=== PATIENT | female | born 1965 | race Caucasian/White ===

== ENCOUNTER 2020-12-03 14:25 | Outpatient (REF) | payer MEDICAID, SELFPAY ==
[2020-12-06 06:06] LABS: HPV mRNA E6/E7 rflx Not Detected (Not Detected)
== END 2020-12-03 14:26 | disposition home or self-care (01) ==
LOC: HO.LAB 14:25
PROVIDERS: Visit Provider Advanced Practice Midwife
DX: Z01.419 Encounter for gynecological examination (general) (routine) without abnormal findings (principal); Z11.51 Encounter for screening for human papillomavirus (HPV); Z80.3 Family history of malignant neoplasm of breast; Z78.0 Asymptomatic menopausal state; Z87.42 Personal history of other diseases of the female genital tract
CPT/HCPCS: 87624; 88142

== ENCOUNTER 2021-01-07 13:31 | Outpatient (REF) | payer MEDICAID, SELFPAY | END 2021-01-07 13:32 | disposition home or self-care (01) | LOC: HO.LAB 13:31 | PROVIDERS: PCP Internal Medicine; Visit Provider Obstetrics & Gynecology | DX: R87.610 Atypical squamous cells of undetermined significance on cytologic smear of cervix (ASC-US) (principal) | CPT/HCPCS: 57454; 88305 ==

== ENCOUNTER 2021-01-09 14:25 | Outpatient (REF) | payer MEDICAID, SELFPAY ==
--- NOTE | ~2021-01-09 | MM_ITS ---
EXAMINATION: MM SCREENING DIGITAL BREAST TOMOSYNTHESIS, BILATERAL CLINICAL INFORMATION: Screening. Asymptomatic. The lifetime risk of breast cancer based on the Tyrer-Cuzick Model is 7%. COMPARISON: Mammography: 01/05/2019, 11/17/2016, 05/12/2016 TECHNIQUE: Digital breast tomosynthesis is performed in both the craniocaudal and mediolateral oblique views along with computer-aided detection (CAD). Synthesized 2D images are generated from the tomosynthesis. FINDINGS: The breasts are heterogeneously dense, which may obscure small masses (ACR BI-RADS breast composition Category c). Breast tissue composition borders on average fibroglandular. No developing density. No significant changes. There are no significant masses, abnormal calcifications, or other abnormalities. MM/MM tomosynthesis screening BI IMPRESSION: No mammographic evidence of malignancy. ASSESSMENT: BI-RADS 1: Negative RECOMMENDATION: Routine annual mammography screening. This patient's information was entered into a reminder system with a target due date for their next mammogram.
== END 2021-01-09 14:26 | disposition home or self-care (01) ==
LOC: HO.MAMMO 14:25
PROVIDERS: Visit Provider Family Medicine
DX: Z12.31 Encounter for screening mammogram for malignant neoplasm of breast (principal)
CPT/HCPCS: 77063; 77067

== ENCOUNTER → 2021-01-22 13:32 | Outpatient (BNVA) | payer MEDICAID, SELFPAY | PROVIDERS: Visit Provider Obstetrics & Gynecology ==

== ENCOUNTER → 2021-01-23 11:22 | Outpatient (BNVA) | payer MEDICAID, SELFPAY | PROVIDERS: PCP Internal Medicine; Visit Provider Obstetrics & Gynecology | DX: N87.0 Mild cervical dysplasia (principal) | CPT/HCPCS: 99212 ==

== ENCOUNTER 2021-01-24 09:04 | Day surgery (SDC) | payer MEDICAID, SELFPAY ==
--- NOTE | 2021-01-23 12:40 | HO.ANESPROP2 ---
Documented by User: Chanel Rodriguez NP 01/23/21 13:42 HPI - Anesthesia Eval Consult details Narrative: 55yo F for Cone LEEP Stable at routine cardiac visit 11/2020 VSD followed by [facility] with yearly echo's PMF Active Problems Active Problems: All Active Problems (Updated 01/22/21 @ 13:36 by Lalo Gonzalez MD) BHANU I (cervical intraepithelial neoplasia I) (Acute) ASCUS of cervix with negative high risk HPV (Acute) Postmenopausal (Acute) Family history of breast cancer in first degree relative (Acute) Hx of abnormal cervical Pap smear (Acute) Well woman exam with routine gynecological exam (Acute) Past Medical History Medical History Depression Heart murmur HTN (hypertension) IBS (irritable bowel syndrome) VSD (ventricular septal defect) Family History Family History Mother Breast cancer Surgical History Surgical History (Updated 01/24/21 @ 10:50 by Dana Hope MD) H/O heart surgery History of 2 sections Hx of appendectomy Hx of cholecystectomy Hx of tubal ligation Social History Social History Alcohol intake: never Patient Tobacco Use Status: Current someday Tobacco user Tobacco use type: Cigarette Cigarettes Per Day: 4 Smoked in Last 30 Days: Yes Use of substances other than those prescribed or required for medical reasons: No Are you DNR?: No Advance Directives: No Advance Directives Information Provided: Yes Recently lost weight without trying: Yes How much weight loss: 2-13 pounds Nutrition Risks: No Nutritional Risk Patient : No Gender identity: Female Meds Allergies Allergy/AdvReac Type Severity Reaction Status Date / Time iodine Allergy Unknown Unknown Verified 12/03/20 14:38 Seafood Allergy Mild ITCH,THROAT Uncoded 12/14/19 17:00 CLOSES shellfish Allergy Unknown Itching Uncoded 12/03/20 14:38 Active Medications: Current Medications Ampicillin Sodium 2 gm/ Sodium (Chloride) 100 mls @ 100 mls/hr IV ONCE ONE Stop: 01/24/21 13:56 Home Medications Medication Instructions Recorded Confirmed Last Taken Type metformin 500 mg tablet 500 mg PO DAILY 12/03/20 12/03/20 Unknown History atorvastatin 40 mg tablet 1 tab PO BEDTIME 01/24/21 01/24/21 Unknown History cetirizine 10 mg tablet 1 tab PO QAM 01/24/21 01/24/21 Unknown History diphenhydramine HCl 25 mg tablet 1 tab PO Q8H PRN 01/24/21 01/24/21 Unknown History epinephrine 0.3 mg/0.3 mL IM DIRECTED 01/24/21 Unknown History injection, auto-injector fluticasone propionate 50 2 spray INTRANASAL DAILY 01/24/21 01/24/21 Unknown History mcg/actuation nasal spray,suspension ibuprofen 800 mg tablet 1 tab PO TID 01/24/21 01/24/21 Unknown History insulin glargine 100 unit/mL (3 10 unit SUBCUT DAILY 01/24/21 01/24/21 Unknown History mL) subcutaneous pen (Lantus Solostar U-100 Insulin) lisinopril 2.5 mg tablet 1 tab PO QAM 01/24/21 01/24/21 01/24/21 History lorazepam 1 mg tablet 1 tab PO DAILY PRN 01/24/21 01/24/21 Unknown History metformin 500 mg tablet,extended 2 tab PO QPM 01/24/21 01/24/21 Unknown History release 24 hr metoprolol succinate 50 mg 1 tab PO QAM 01/24/21 01/24/21 01/24/21 History tablet,extended release 24 hr omeprazole 20 mg capsule,delayed 1 cap PO QAM 01/24/21 01/24/21 01/24/21 History release zolpidem 10 mg tablet 1 tab PO BEDTIME PRN 01/24/21 01/24/21 Unknown History Exam Exam Date and Time: January 23, 2021 1240 Narrative Narrative: ECHO per Cardiac note: preserved EF with mild to moderate pulmonary HTN and VSD shunt from left to right with grossly of 2.91 M/S and peak gradient of 33.8, no significant change compared to previous Assessment and Plan Assessment Anesthesia Assessment: Chart Reviewed Documented by User: Dana Hope MD 01/24/21 11:12 PMFSH Active Problems Active Problems: All Active Problems (Updated 01/22/21 @ 13:36 by Lalo Gonzalez MD) BHANU I (cervical intraepithelial neoplasia I) (Acute) ASCUS of cervix with negative high risk HPV (Acute) Postmenopausal (Acute) Family history of breast cancer in first degree relative (Acute) Hx of abnormal cervical Pap smear (Acute) Well woman exam with routine gynecological exam (Acute) VSD with L to R shunt. Patient apparently has a VSD which was fixed at [facility] in ?2005. However patient still has distinct pansystolic murmur. On further questioning patient states she was told that stitches burst . Was offered further surgery but she declined. Sees cardiology every year for follow-up. Reportedly stable at last visit of 10/2020 and next visit scheduled for 1 year Denies h/o CHF ? Pulmonary hypertension Past Medical History Medical History Depression Heart murmur HTN (hypertension) IBS (irritable bowel syndrome) VSD (ventricular septal defect) Family History Family History Mother Breast cancer Family history of problems with anesthesia: No Surgical History Surgical History (Updated 01/24/21 @ 10:50 by Dana Hope MD) H/O heart surgery History of 2 sections Hx of appendectomy Hx of cholecystectomy Hx of tubal ligation History of Problems with Anesthesia: No Social History Social History Alcohol intake: never Patient Tobacco Use Status: Current someday Tobacco user Tobacco use type: Cigarette Cigarettes Per Day: 4 Smoked in Last 30 Days: Yes Use of substances other than those prescribed or required for medical reasons: No Are you DNR?: No Advance Directives: No Advance Directives Information Provided: Yes Recently lost weight without trying: Yes How much weight loss: 2-13 pounds Nutrition Risks: No Nutritional Risk Patient : No Gender identity: Female Meds Allergies Allergy/AdvReac Type Severity Reaction Status Date / Time iodine Allergy Unknown Unknown Verified 12/03/20 14:38 Seafood Allergy Mild ITCH,THROAT Uncoded 12/14/19 17:00 CLOSES shellfish Allergy Unknown Itching Uncoded 12/03/20 14:38 Home Medications Medication Instructions Recorded Confirmed Last Taken Type metformin 500 mg tablet 500 mg PO DAILY 12/03/20 12/03/20 Unknown History atorvastatin 40 mg tablet 1 tab PO BEDTIME 01/24/21 01/24/21 Unknown History cetirizine 10 mg tablet 1 tab PO QAM 01/24/21 01/24/21 Unknown History diphenhydramine HCl 25 mg tablet 1 tab PO Q8H PRN 01/24/21 01/24/21 Unknown History epinephrine 0.3 mg/0.3 mL IM DIRECTED 01/24/21 Unknown History injection, auto-injector fluticasone propionate 50 2 spray INTRANASAL DAILY 01/24/21 01/24/21 Unknown History mcg/actuation nasal spray,suspension ibuprofen 800 mg tablet 1 tab PO TID 01/24/21 01/24/21 Unknown History insulin glargine 100 unit/mL (3 10 unit SUBCUT DAILY 01/24/21 01/24/21 Unknown History mL) subcutaneous pen (Lantus Solostar U-100 Insulin) lisinopril 2.5 mg tablet 1 tab PO QAM 01/24/21 01/24/21 01/24/21 History lorazepam 1 mg tablet 1 tab PO DAILY PRN 01/24/21 01/24/21 Unknown History metformin 500 mg tablet,extended 2 tab PO QPM 01/24/21 01/24/21 Unknown History release 24 hr metoprolol succinate 50 mg 1 tab PO QAM 01/24/21 01/24/21 01/24/21 History tablet,extended release 24 hr omeprazole 20 mg capsule,delayed 1 cap PO QAM 01/24/21 01/24/21 01/24/21 History release zolpidem 10 mg tablet 1 tab PO BEDTIME PRN 01/24/21 01/24/21 Unknown History Exam Height,Weight and Vital Signs: Height 5 ft 3 in Weight 78.925 kg Vital Signs Temp Pulse Resp BP Pulse Ox 01/24/21 10:10 97.2 F 88 16 143/82 H 98 Pertinent Lab Results Pertinent Lab Results: Lab Results 01/24/21 01/24/21 Range/Units 09:40 10:20 POC Glucose 166 H (60-115) mg/dL Urine Test NEGATIVE (NEGATIVE) Airway Mallampati Class: II TM Dist: >3cm Neck ROM: Full Heart: RRR+ Pansystolic murmur Lungs: CTAB Assessment and Plan Assessment Anesthesia Assessment: Anesthesia Plan Discussed Final Anesthetic Review Family History of Problems with Anesthesia: No History of Problems with Anesthesia: No NPO: Yes ASA Class: III Final Preanesthetic Review: No Changes in Pt Med Stat, Meds/Allgs Chart Reviewed, Consent Obtained/Reviewed and Anes Risks/Benef Reviewed Patient Risk: Intermediate Procedure Risk: Low Anesthetic Plan Anesthetic Plan: GA and MAC: Disposition: Standard PACU
[2021-01-24 09:50] VITALS: BMI 30.8
[2021-01-24 10:03] LABS: UPreg QC Valid YES; Urine Pregnancy NEGATIVE (NEGATIVE)
[2021-01-24 10:10] VITALS: BP 143/82; PULSE 88; RESP 16; TEMP 36.2; O2SAT 98
--- NOTE | 2021-01-24 10:16 | MHC.SHP ---
Pre-Procedural Eval Section A Date of Service: 01/24/21 The patient is an INPATIENT: No Changes since office visit: No Cold of Flu in the past 2 weeks, No New Medical Problems, No Changes in Medication and No Patient answered all questions The History & Physical has been completed within 30 days and I have reviewed it.: Yes Section B Chief Complaint: mild dysplasia Allergies: Allergies Allergy/AdvReac Type Severity Reaction Status Date / Time iodine Allergy Unknown Unknown Verified 12/03/20 14:38 Seafood Allergy Mild ITCH,THROAT Uncoded 12/14/19 17:00 CLOSES shellfish Allergy Unknown Itching Uncoded 12/03/20 14:38 Plan Diagnosis/Plan: Unchanged I have reviewed the history and physical and performed a pertinent physical examination on my patient. No changes have occurred unless specified.
[2021-01-24] MEDS: Lactated Ringers 1,000 ML 50 ML IVCONT (10:27)
[2021-01-24 10:28] LABS: Glucose, Whole Blood 166 mg/dL (60-115)
--- NOTE | 2021-01-24 11:13 | PM.OP ---
Brief Operative Note Date of Service: 01/24/21 Pre-op diagnosis: Persistent BHANU 1 with positive ECC Post-op diagnosis: same Procedure: LEEP CONE with post CONE ECC Surgeon: Lalo Gonzalez MD Anesthesia: local and other (Paracervical block) Was an Mine Equipment Design Engineer used for this Procedure?: No Estimated blood loss (mL): 0 Pathology: other (Cervical cone, Endocx, Post cone ECC) Condition: stable Disposition: other (Home)
--- NOTE | 2021-01-24 11:14 | W.PM.OPN ---
Operative Note Operative Note Date of Service: 01/24/21 Narrative: Preop diagnosis: Persistent BHANU 1 with + ECC Operation: LEEP Cone with post cone ECC Post op diagnosis: same Anesthesia: paracervical block Complications: none Pathology: Cervical cone with endocervix & post cone ECC QBL: minimal Procedure: The patient was put in the dorsal lithotomy position, was prepped and draped in the usual sterile fashion. A sterile speculum was inserted inside the patient vagina. Using Lugol solution the cervix with Dyed with Lugol solution to identifiy the abnormal demarcating line. 10 cc of Marcaine0.5% with epinephrine were given at 2,4 , 8, and 10 o'clock. Using a medium-size loop wire, the cervical cone was excised followed by endocervix, post cone ECC was done afterwards. Hemostasis was assured using cautery and Monsel solution. All instruments were taken out of the patient's vaginal cavity. the patient tolerated the procedure well and was discharged home with the following instructions: call if temperature is above 100.4, vaginal bleeding, abdominal pain or nausea or vomiting. Follow-up in the office in 2 weeks for postop visit
[2021-01-24 11:22] VITALS: BP 128/64; PULSE 97; RESP 22; TEMP 37.1; O2SAT 98
[2021-01-24 11:28] VITALS: BP 107/53; PULSE 91; RESP 20; O2SAT 98
[2021-01-24 11:33] VITALS: BP 119/61; PULSE 93; RESP 20; O2SAT 98
[2021-01-24 11:38] VITALS: BP 137/68; PULSE 93; RESP 20; O2SAT 98
[2021-01-24 11:53] VITALS: BP 128/63; PULSE 93; RESP 20; O2SAT 94
== END 2021-01-24 12:46 | disposition home or self-care (01) ==
PROVIDERS: PCP Internal Medicine; Visit Provider Obstetrics & Gynecology
PROC: 0UBC7ZZ Excision of Cervix, Via Natural or Artificial Opening (ICD-10-PCS; CPT 57522; principal; 2021-01-24 11:10)
DX: N87.0 Mild cervical dysplasia (principal); Z98.51 Tubal ligation status; I10 Essential (primary) hypertension; F32.9 Major depressive disorder, single episode, unspecified; Q24.9 Congenital malformation of heart, unspecified; K58.9 Irritable bowel syndrome, unspecified; Z91.041 Radiographic dye allergy status; F17.210 Nicotine dependence, cigarettes, uncomplicated
CPT/HCPCS: 57522; 81025; 82947; 88300; 88307; 88341; 88342; 88360; J0290; J1100; J2405; J3010

== ENCOUNTER → 2021-02-06 12:57 | Outpatient (BNVA) | payer MEDICAID, SELFPAY | PROVIDERS: Visit Provider Obstetrics & Gynecology ==

== ENCOUNTER 2021-12-05 11:01 | Outpatient (REF) | payer MEDICAID, SELFPAY ==
--- NOTE | ~2021-12-05 | XR_ITS ---
EXAMINATION: XR LUMBOSACRAL SPINE CLINICAL INFORMATION: Lumbago with right sciatica. COMPARISON: Unresponsive radiographs dated 04/06/2018. TECHNIQUE: AP, bilateral oblique and lateral views of the lumbar spine and lateral view of the lumbosacral junction. FINDINGS: There is bony demineralization. Vertebral body heights are normal. At T12-L1 and L1-L2, there is mild disc space narrowing. At L5-S1, there is a 3 mm anterolisthesis. Remaining disc spaces are well-maintained. No acute fracture or spondylolisthesis is seen. There is multi-level mild thoracolumbar spondylosis. The posterior elements are intact. There is facet arthropathy, most pronounced at L5-S1. No spondylolysis defect is seen on the oblique views. The paravertebral soft tissues are unremarkable. There are abdominal and pelvic surgical clips. XR/XR lumbar spine 4V min IMPRESSION: 1. There is mild degenerative disc disease at T12-L1, L1-L2 and L5-S1. 2. There is multi-level mild thoracolumbar spondylosis. 3. There is facet arthropathy, most pronounced at L5-S1. EXAMINATION: XR SACRUM AND COCCYX CLINICAL INFORMATION: Sacrococcygeal pain. COMPARISON: None TECHNIQUE: 3 frontal and lateral views of the sacrum and coccyx were obtained. FINDINGS: There are no fractures. No bone, joint or soft tissue abnormality is demonstrated. The sacroiliac joints are symmetric and well-maintained, and the pubic symphysis is intact. There are right pelvic phleboliths. IMPRESSION: Unremarkable examination.
--- NOTE | ~2021-12-05 | XR_ITS ---
EXAMINATION: XR LUMBOSACRAL SPINE CLINICAL INFORMATION: Lumbago with right sciatica. COMPARISON: Unresponsive radiographs dated 04/06/2018. TECHNIQUE: AP, bilateral oblique and lateral views of the lumbar spine and lateral view of the lumbosacral junction. FINDINGS: There is bony demineralization. Vertebral body heights are normal. At T12-L1 and L1-L2, there is mild disc space narrowing. At L5-S1, there is a 3 mm anterolisthesis. Remaining disc spaces are well-maintained. No acute fracture or spondylolisthesis is seen. There is multi-level mild thoracolumbar spondylosis. The posterior elements are intact. There is facet arthropathy, most pronounced at L5-S1. No spondylolysis defect is seen on the oblique views. The paravertebral soft tissues are unremarkable. There are abdominal and pelvic surgical clips. XR/XR sacrum coccyx min 2V IMPRESSION: 1. There is mild degenerative disc disease at T12-L1, L1-L2 and L5-S1. 2. There is multi-level mild thoracolumbar spondylosis. 3. There is facet arthropathy, most pronounced at L5-S1. EXAMINATION: XR SACRUM AND COCCYX CLINICAL INFORMATION: Sacrococcygeal pain. COMPARISON: None TECHNIQUE: 3 frontal and lateral views of the sacrum and coccyx were obtained. FINDINGS: There are no fractures. No bone, joint or soft tissue abnormality is demonstrated. The sacroiliac joints are symmetric and well-maintained, and the pubic symphysis is intact. There are right pelvic phleboliths. IMPRESSION: Unremarkable examination.
--- NOTE | ~2021-12-05 | XR_ITS ---
EXAMINATION: XR ELBOW, RIGHT CLINICAL INFORMATION: Pain. COMPARISON: None TECHNIQUE: AP, lateral, and oblique views of the right elbow. FINDINGS: The bones and soft tissues are normal. No fracture or joint effusion. Small enthesophytes arise from the olecranon process and the lateral epicondyle of the distal humerus. Alignment is anatomic. Joint spaces are maintained. XR/XR elbow RT 2V IMPRESSION: Unremarkable right elbow.
== END 2021-12-05 11:02 | disposition home or self-care (01) ==
LOC: HO.XRAY 11:01
PROVIDERS: Visit Provider Internal Medicine
DX: Z13.89 Encounter for screening for other disorder (principal)
CPT/HCPCS: 72110; 72220; 73070

== ENCOUNTER 2022-01-14 13:24 | Outpatient (REF) | payer MEDICAID, SELFPAY ==
--- NOTE | ~2022-01-14 | MM_ITS ---
EXAMINATION: MM SCREENING DIGITAL BREAST TOMOSYNTHESIS, BILATERAL CLINICAL INFORMATION: Screening. Asymptomatic. The lifetime risk of breast cancer based on the Tyrer-Cuzick Model is 14%. COMPARISON: Mammography: January 09, 2021 and studies dating back to June 08, 2013 TECHNIQUE: Digital breast tomosynthesis is performed in both the craniocaudal and mediolateral oblique views along with computer-aided detection (CAD). Synthesized 2D images are generated from the tomosynthesis. FINDINGS: The breasts are heterogeneously dense, which may obscure small masses (ACR BI-RADS breast composition Category c). There are no significant masses, abnormal calcifications, or other abnormalities. MM/MM tomosynthesis screening BI IMPRESSION: No significant changes from prior exam. ASSESSMENT: BI-RADS 1: Negative RECOMMENDATION: Routine annual mammography screening. This patient's information was entered into a reminder system with a target due date for their next mammogram.
== END 2022-01-14 13:25 | disposition home or self-care (01) ==
LOC: HO.MAMMO 13:24
PROVIDERS: PCP Internal Medicine; Visit Provider Internal Medicine
DX: Z12.31 Encounter for screening mammogram for malignant neoplasm of breast (principal)
CPT/HCPCS: 77063; 77067

== ENCOUNTER → 2022-05-15 09:50 | Outpatient (BNVA) | payer MEDICAID, SELFPAY | PROVIDERS: PCP Internal Medicine; Visit Provider Physician Assistant | DX: M77.11 Lateral epicondylitis, right elbow (principal); E11.9 Type 2 diabetes mellitus without complications | CPT/HCPCS: 20551; 99202; J1020 ==

== ENCOUNTER 2022-11-09 14:33 | Outpatient (REF) | payer MEDICAID, SELFPAY ==
[2022-11-12 04:13] LABS: HPV mRNA E6/E7 rflx Not Detected (Not Detected)
== END 2022-11-09 14:34 | disposition home or self-care (01) ==
LOC: HO.LNP 14:33
PROVIDERS: PCP Internal Medicine; Visit Provider Obstetrics & Gynecology
DX: Z01.419 Encounter for gynecological examination (general) (routine) without abnormal findings (principal); Z11.51 Encounter for screening for human papillomavirus (HPV); Z87.42 Personal history of other diseases of the female genital tract
CPT/HCPCS: 87624; 88142

== ENCOUNTER 2022-11-09 14:33 | Outpatient (AMB) | payer MEDICAID, SELFPAY ==
--- NOTE | 2022-11-09 14:44 | A.OFFVIS_ITS ---
Intake Vital Signs 11/09/22 14:57 Height 5 ft 3 in Weight 179 lb BMI 31.7 BP 114/70 Intake Visit Reasons: Annual/do not reschedule Gambreler Helper Required: Yes Gambreler Helper Language: Superintendent Laundry Name: Bobbi Bautista Information Interpreted: non-clinical & clinical Oracle Distribution Consultant: Oracle Distribution Consultant Present (Bobbi) Allergies iodine Allergy (Unknown, Verified 11/09/22 15:03) Unknown Seafood Allergy (Mild, Uncoded 11/09/22 15:03) ITCH,THROAT CLOSES shellfish Allergy (Unknown, Uncoded 11/09/22 15:03) Itching Is last menstrual period known: No Post menopausal: Yes HPI HPI Comments History of Present Illness Details Presenting for annual exam. No complaints. Last Pap/HPV was ascus/HPV negative in 12/17, colpo biopsy showed BHANU 1, status post LEEP Last Mammogram was BI-RADS 1 in 01/17 Last Colonoscopy [facility] Medical History (Updated 11/09/22 @ 15:01 by Lalo Gonzalez MD) BHANU I (cervical intraepithelial neoplasia I) Depression Heart murmur HTN (hypertension) IBS (irritable bowel syndrome) VSD (ventricular septal defect) Surgical History H/O heart surgery History of 2 sections Hx of appendectomy Hx of cholecystectomy Hx of tubal ligation Family History Mother Breast cancer Social History (Updated 05/15/22 @ 10:00 by Kai Rehman) Alcohol intake: never Patient Tobacco Use Status: Current someday Tobacco user Tobacco use type: Cigarette Cigarettes Per Day: 4 Current occupational status: disabled Current occupation: right hand dominant Gender identity: Female Female Reproductive History Menstrual Age of Menarche: 11 control method: permanent sterilization Total pregnancies: 2 Full term: 2 Number of Living Children: 2 Date of last pap smear: 12/14/20 Date of Mammogram: 01/14/22 Review of Systems Const All systems reviewed & are unremarkable except as noted in HPI and below Card Reports as per HPI Resp Reports as per HPI GI Reports as per HPI and Reports no additional complaints Reports as per HPI Physical Exam Const General: cooperative, healthy appearing and comfortable Chest Chest palpation & inspection: normal inspection of the chest and normal palpation of entire chest wall Breast/axilla inspection: normal inspection of the breasts and normal inspection of the axillae Breast/axilla palpation: normal palpation of the breasts, normal palpation of the axillae and no axillary lymphadenopathy Resp Effort & Inspection: normal respiratory effort Auscultation: clear to auscultation bilaterally Percussion: percussion normal Cardio Palpation: normal PMI Rate: regular rate Rhythm: regular rhythm Heart sounds: no murmurs and no rubs Peripheral pulses: Peripheral pulses 2+ throughout GI Inspection: Yes normal to inspection Palpation (GI): Soft to palpation, nontender, no guarding, not rigid and No hepatosplenomegaly present Percussion: Yes normal to percussion Auscultation: normal bowel sounds Rectal Exam - Female: deferred General: Yes bladder normal to palpation External Female Exam: No lesion Speculum Exam - Vagina: normal appearance of the vagina, normal palpation, normal vaginal discharge and not erythematous Speculum Exam - Cervix: normal appearance of the cervix and normal palpation Bimanual exam- vagina & uterus: normal bimanual exam, normal palpation, uterine size normal, bladder normal to palpation, consistency normal and normal palpation Bimanual Exam- Adnexa, other: normal adnexae, no masses and no tenderness Assessment & Plan Assessment & Plan (1) Well woman exam with routine gynecological exam: Code(s): Z01.419 - Encounter for gynecological examination (general) (routine) without abnormal findings Plan: Co testing done. Counseled the patient about the recommended dietary allowance of 1200 mg of Calcium & 600 IU of vitamin D. Mammogram ordered , the patient was referred to GI for screening colonoscopy . The patient was instructed to perform monthly self-breast exams and schedule annual exam in a year; all questions answered and the patient verbalized understanding. Orders: Orders MM screening mammo BI Today Z12.31 - Encounter for screening mammogram for malignant neoplasm of breast Referrals Gastroenterology Referral Z12.11 - Encounter for screening for malignant neoplasm of colon Coding Level of Care Code Est Pt Prev Care 40-64y(32834) Diagnoses Well woman exam with routine gynecological exam Z01.419
[2022-11-09 14:57] VITALS: BP 114/70; BMI 31.7
== END 2022-11-09 15:17 | disposition home or self-care (01) ==
LOC: HO.HWS 14:33
PROVIDERS: PCP Internal Medicine; Visit Provider Obstetrics & Gynecology
DX: Z01.419 Encounter for gynecological examination (general) (routine) without abnormal findings (principal)
CPT/HCPCS: 99396

== ENCOUNTER 2023-01-15 13:55 | Outpatient (REF) | payer MEDICAID, SELFPAY | END 2023-01-15 13:56 | disposition home or self-care (01) | LOC: HO.MAMMO 13:55 | PROVIDERS: PCP Internal Medicine; Visit Provider Obstetrics & Gynecology | DX: Z12.31 Encounter for screening mammogram for malignant neoplasm of breast (principal) | CPT/HCPCS: 77063; 77067 ==

== ENCOUNTER → 2023-01-15 15:30 | Outpatient (BNV) | payer MEDICAID, SELFPAY | PROVIDERS: PCP Internal Medicine; Visit Provider Radiology Diagnostic Radiology | DX: Z12.31 Encounter for screening mammogram for malignant neoplasm of breast (principal) | CPT/HCPCS: 77063; 77067 ==

== ENCOUNTER 2023-05-03 08:30 | Outpatient (REF) | payer MEDICAID, SELFPAY ==
[2023-05-03 12:06] LABS: Estimated Average Glucose 120 mg/dL; Hemoglobin A1c % 5.8 % (<6.0)
[2023-05-03 12:25] LABS: Anion Gap 12 (12-20); Blood Urea Nitrogen 12 mg/dL (9-16); Calcium 9.9 mg/dL (8.4-10.2); Carbon Dioxide 29 mmol/L (22-29); Chloride 107 mmol/L (96-108); Estimated Glomerular Filt Rate > 60; Glucose Random 130 mg/dL (60-115); Potassium 5.7 mmol/L (3.3-5.1); Sodium 142 mmol/L (135-145)
== END 2023-05-03 08:31 | disposition home or self-care (01) ==
LOC: HO.HHCL 08:30
PROVIDERS: Visit Provider Internal Medicine
DX: I10 Essential (primary) hypertension (principal); E11.9 Type 2 diabetes mellitus without complications
CPT/HCPCS: 36415; 80048; 83036

== ENCOUNTER 2023-05-12 09:39 | Outpatient (REF) | payer MEDICAID, SELFPAY ==
[2023-05-12 12:03] LABS: Potassium 4.2 mmol/L (3.3-5.1)
== END 2023-05-12 09:40 | disposition home or self-care (01) ==
LOC: HO.HHCL 09:39
PROVIDERS: Visit Provider Internal Medicine
DX: E87.5 Hyperkalemia (principal)
CPT/HCPCS: 36415; 84132

== ENCOUNTER 2024-07-20 08:03 | Outpatient (REF) | payer MEDICAID, SELFPAY ==
[2024-07-20 11:47] LABS: Alanine Aminotransferase 31 U/L (0-31); Albumin Level 4.5 g/dL (3.5-5.0); Alkaline Phosphatase 57 U/L (39-117); Anion Gap 11 (12-20); Aspartate Amino Transferase 28 U/L (5-31); Bilirubin Direct 0.2 mg/dL (0.0-0.5); Bilirubin Total 0.6 mg/dL (0.0-1.0); Blood Urea Nitrogen 10 mg/dL (9-16); Calcium 9.8 mg/dL (8.4-10.2); Carbon Dioxide 33 mmol/L (22-29); Chloride 101 mmol/L (96-108); Cholesterol 128 mg/dL (<200); Estimated Glomerular Filt Rate > 60; Glucose Random 126 mg/dL (60-115); HDL Cholesterol 30 mg/dL (>40); LDL Cholesterol Calculated 61 mg/dL (<100); Sodium 141 mmol/L (135-145); Total Protein 7.4 g/dL (6.5-8.0); Triglycerides 186 mg/dL (<150)
[2024-07-20 12:26] LABS: Creatinine Urine 161.42 mg/dL; Microalbum/Creatinine Ratio Ur 7.4 ug/mg cr (<30)
[2024-07-20 12:45] LABS: Folate 8.8 ng/mL (> or = 4.0); Vitamin B12 253 pg/mL (200-900)
== END 2024-07-20 08:04 | disposition home or self-care (01) ==
LOC: HO.HHCL 08:03
PROVIDERS: Visit Provider Internal Medicine
DX: E11.9 Type 2 diabetes mellitus without complications (principal)
CPT/HCPCS: 36415; 80048; 80061; 80076; 82043; 82570; 82607; 82746

== ENCOUNTER 2025-02-07 10:20 | Outpatient (REF) | payer MEDICAID, SELFPAY ==
--- OUTSIDE RECORDS SUMMARY | 2025-02-06 10:30 | XMS_ITS | Encounter Summary ---
Author Organization [facility] Address [address] [facility] [facility] [facility] [address] [place] [address] Care Team Providers Care Chip Unloader Name Role Phone Kenton Jefferson MD Primary Care Provide r Roosevelt Reis PharmD Unavailable [phone] Reason for Referral * Consultation (Routine) - Authorized Specialty Diagnoses / Procedures Referred By Jackson victoria Referred To Contact Orthopaedic Surgery Diagnoses Mass of left forearm Kenton Jefferson MD [address] [place] [address] Phone: tel: fax: [facility] [address] [place] [address] Phone: tel: Referral ID Status Reason Start Date Expiration Date Visits Requested Visits Authorized [id number] Authorized Specialty Services Required 5 02/06/2026 6 6 * Imaging (Routine) - Closed Specialty Diagnoses / Procedures Referred By Jackson victoria Referred To Contact Radiology Diagnoses Breast cancer screening by mammogram Procedures BI Mammogram Screening Tomosynthesis Bilateral Kenton Jefferson MD [address] [place] [address] Phone: tel: fax: [facility] [address] [place] [address] Phone: tel: fax: Referral ID Status Reason Start Date Expiration Date Visits Re quested Visits Authorized [id number] Closed 02/06/2025 02/06/2026 1 1 Encounter Details Date Type Department Care Team (Late st Contact Info) Description 02/06/2025 10:30 AM EST Office Visit [facility] [address] [place] [address] Kenton Jefferson MD [address] [place] [address] Type 2 diabetes mellitus without complication, without long-term current use of insulin (HCC) (Primary Dx); Ventricular septal defect; Benign hypertension; Mixed hyperlipidemia; Breast cancer screening by mammogram; Depressive disorder; Mass of left forearm; Routine physical examination; Class 1 obesity due to excess calories with serious comorbidity and body mass index (BMI) of 30.0 to 30.9 in adult; Dietary counseling; Exercise counseling; Encounter for immunization Social History Tobacco Use Types Packs/Day Years Used Date Smoking Tobacco: Every Day Cigarettes 0.3 14.9 Started: 2010 Passive Smoke Exposure: Current Smokeless Tobacco: Never Comments:Smoking 1-3 cigaret hossein daily; smoking since 2010. Alcohol Use Standard Drinks/Week Comments Never 0 (1 standard drink = 0.6 oz pur e alcohol) Alcohol Answer Date Recorded Frequency of Alcohol Consumption Not on file 02/01/2024 Average Number of Drinks Not on file 024 Frequency of Binge Drinking Not on file 07/2023 Score 0 02/01/2024 Depression Answer Date Recorded Patient Health Questionnaire-9 Score 9 02/06/2025 Patient Health Questionnaire-9 Score 9 02/06/2025 Last PHQ-9: Questionnaire Data Not on file 1 04/08/2024 Housing Stability Answer Date Recorded What is your housing situation today? I have love leon 01/30/[address] you li ve. Do you have problems with any of the following? None of the above 01/30/2025 Food Insecurity Answer Date Recorded Within the past 12 months, y ou worried that your food would run out before you got money to buy more: Sometimes True 2024 Within the past 12 months,th e food you bought just didn't last and you didn't have enough money to get more: Sometimes True 01/30/2025 Transportation Answer Date Recorded In the past 12 months, has l ack of transportation kept you from medical appts, meetings, work or from getting things needed for daily living? No 01/30/2025 Utilities Answer Date Recorded In the past 12 months, has t he electric, gas, oil or water company threatened to shut off services in your home? No 01/30/2025 Depression Answer Date Recorded Patient Health Questionnaire-2 Score 5 02/06/2025 Internet Access Answer Date Recorded Internet Access Q1 Yes 01/30/2025 Internet Access Q2 Not on file 01/30/2025 Comments Unknown Sex and Gender Information Value Date Recorded Sex Assigned at Female 01/26/2022 10:16 AM EDT Legal Sex Female 10:16 AM EDT Gender Identity Female 01/26/2022 10:16 AM EDT Sexual Orientation Straight 01/26/2022 10 :16 AM EDT documented as of this encounter Last Filed Vital Signs Vital Sign Reading Time Taken Comments Blood Pressure 132/80 02/06/2025 10:34 AM EST Pulse 92 02/06/2025 10:34 AM EST Temperature 35.4 C (95.7 F) 02/06/2025 10:34 AM EST Respiratory Rate 15 02/06/2025 10:34 AM EST Oxygen Saturation 97% 02/06/2025 10:34 AM EST Inhaled Oxygen Concentration - - Weight 78.6 kg (173 lb 3.2 oz) 02/06/2025 10:34 AM EST Height 160 cm (5' 3 ) 02/06/2025 10:34 AM EST Body Mass Index 30.68 02/06/2025 10:34 AM EST documented in this encounter Functional Status * Over the past 2 weeks, how often have you been bothered by any of the following problems? Question Answer Date of Assessment Author Patient Health Questionnaire -2 Score 5 02/06/2025 10:33 AM EST Yuo Corado [place] * Little interest or pleasure in doing things Answer Date of Assessment Author Nearly every day 02/06/2025 10:33 AM EST Wanda Corado [place] * Feeling down, depressed, or hopeless Answer Date of Assessment Author More than half the days 02/06/2025 10:33 AM Wanda Patel [place] * Trouble falling or staying asleep, or sleeping too much Answer Date of Assessment Author Not at all 02/06/2025 10:33 AM Wanda Patel [place] * Feeling tired or having little energy Answer Date of Assessment Author Nearly every day 02/06/2025 10:33 AM Wanda Patel [place] * Poor appetite or overeating Answer Date of Assessment Author Not at all 02/06/2025 10:33 AM Wanda Patel [place] * Feeling bad about yourself - or that you are a failure or have let yourself or your family down Answer Date of Assessment Author Not at all 02/06/2025 10:33 AM Wanda Patel [place] * Trouble concentrating on things, such as reading the newspaper or watching television Answer Date of Assessment Author Several days 02/06/2025 10:33 AM Wanda Patel [place] * Moving or speaking so slowly that other people could have noticed? Or the opposite - being so fidgety or restless that you have been moving around a lot more than usual. Answer Date of Assessment Author Not at all 02/06/2025 10:33 AM Wanda Patel MA * Thoughts that you would be better off or hurting yourself in some way Answer Date of Assessment Author Not at all 02/06/2025 10:33 AM Wanda Patel MA * Patient Health Questionnaire-9 Score Answer Date of Assessment Author 9 02/06/2025 10:33 AM Wanda Patel [place] * Over the last 2 weeks, how often have you been bothered by any of the following problems? Question Answer Date of Assessment Author Feeling nervous, anxious, or on edge 1 02/06/2025 10:34 AM You Patel MA Not being able to stop or control worrying 1 02/06/2025 10:34 AM You Patel MA Worrying too much about different things 1 02/06/2025 10:34 AM You Patel MA Trouble relaxing 2 02/06/2025 10:34 AM Wanda Patel MA Being so restless that it is hard to sit still 1 02/06/2025 10:34 AM You Patel MA Becoming easily annoyed or irritable 3 02/06/2025 10:34 AM You Patel MA Feeling afraid as if somethi ng awful might happen 0 02/06/2025 10:34 AM You Patel MA CON-7 Total Score 9 02/06/2025 10:34 AM Wanda Patel MA documented as of this encounter Progress Notes * Kenton Campbell MD - 02/06/2025 10:30 AM EST SUBJECTIVE Jacqui Ferguson is a 59 y.o. female who presents for No chief complaint on file.. Jacqui Ferguson, 59 years Left Arm Lump - Lump present on left arm since august 2024 - Denies prior pain; pain started recently - Unable to fully extend the arm, but able to lift it - Reports intermittent discomfort localized to the left arm - Tried topical treatments including Voltaren without improvement Elevated Blood Sugar - Reports elevated blood sugar compared to previous levels - Uses injectable medication (Trulicity) for diabetes management - Occasionally misses a dose, but takes it the following day HPI Review of Systems Constitutional: Negative for appetite change, fatigue and fever. HENT: Negative for ear pain, hearing loss and sore throat. Eyes: Negative for pain and visual disturbance. Respiratory: Negative for cough and shortness of breath. Cardiovascular: Negative for chest pain and palpitations. Gastrointestinal: Negative for abdominal pain, nausea and vomiting. Genitourinary: Negative for dysuria. Skin: Negative for rash. Neurological: Negative for dizziness and headaches. Psychiatric/Behavioral: Negative for sleep disturbance. Allergies[1] OBJECTIVE Vitals: 02/06/25 1034 BP: 132/80 Pulse: 92 Resp: 15 Temp: 95.7 ??F (35.4 ??C) TempSrc: Temporal SpO2: 97% Weight: 173 lb 3.2 oz (78.6 kg) Height: 5' 3 (1.6 m) Physical Exam Vitals reviewed. Constitutional: General: She is awake. Appearance: Normal appearance. She is well-developed. HENT: Head: Normocephalic and atraumatic. Right Ear: Tympanic membrane, ear canal and external ear normal. Left Ear: Tympanic membrane, ear canal and external ear normal. Nose: Nose normal. Mouth/Throat: Mouth: Mucous membranes are moist. Pharynx: Oropharynx is clear. Eyes: Extraocular Movements: Extraocular movements intact. Conjunctiva/sclera: Conjunctivae normal. Pupils: Pupils are equal, round, and reactive to light. Cardiovascular: Rate and Rhythm: Normal rate and regular rhythm. Pulses: Normal pulses. Heart sounds: Normal heart sounds. Pulmonary: Effort: Pulmonary effort is normal. Breath sounds: Normal breath sounds. Chest: Breasts: Right: Normal. No swelling, bleeding, inverted nipple, mass or nipple discharge. Left: Normal. No swelling, bleeding, inverted nipple, mass or nipple discharge. Abdominal: General: Bowel sounds are normal. Palpations: Abdomen is soft. Musculoskeletal: General: Normal range of motion. Left forearm: Deformity and tenderness present. Cervical back: Normal range of motion and neck supple. Comments: Superficial palpable mass left forearm 2 x 1 cm Lymphadenopathy: Upper Body: Right upper body: No supraclavicular or axillary adenopathy. Left upper body: No supraclavicular or axillary adenopathy. Skin: General: Skin is warm. Capillary Refill: Capillary refill takes less than 2 seconds. Neurological: General: No focal deficit present. Mental Status: She is alert and oriented to person, place, and time. Mental status is at baseline. Deep Tendon Reflexes: Reflexes are normal and symmetric. Psychiatric: Mood and Affect: Mood normal. Assessment/Plan Problem List Items Addressed This Visit Type 2 diabetes mellitus without complication, without long-term current use of insulin ([facility]) - Primary Pt here for a f/u DM stable Hgb A1c 02/06/2025: 7.1 from 6.2 She is on a regimen of Metformin XR 500 mg 2 tabs po BID, and Trulicity 1.5 mg once a week (In the past pt refused to consider any type of Insulin because in the past she experienced headaches) Microalbumin 07/20/2024 was : 12 Pt not on an SUSHANT inhibitor/ARB Foot check risk of zero Eye exam: Pt reports compliance with Asa 81 mg po daily Plan: Increase Trulicity to 3 mg weekly f/u 4 months Pt advised to: adhere to diabetic diet check your blood sugars regularly check your feet on a daily basis Relevant Medications Dulaglutide (Trulicity) 3 MG/0.5ML solution auto-injector Other Relevant Orders POCT glucose manually resulted (Completed) POCT glycosylated hemoglobin (Hgb A1c) (Completed) Ventricular septal defect Pt under the care of Dr Thorne, last seen 12/13/2024 Hx of congenital heart disease, 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 Last ECHO 11/28/[address] Thorne showed no changed on small VSD with left to right sunt Pt advised in the need for Antibiotic prophylaxis prior to any invasive dental procedures. Benign hypertension Patient here for a follow up BP controlled Better control per her report she has a BP monitor at home. She is on a regimen of: Toprol XL 100 mg po daily and Hygroton 25 mg po daily ( In the past developed hyperkalemia. Lisinopril was discontinued due to Hyperkalemia) patient advised to adhere to a lowsodium diet, encouraged about medication compliance, counseled about weight loss. Plan: Continue current regimen 4 months follow up with me Hyperlipidemia Here for a f/u Patient with elevated lipids. Most recent lipid profile from: Lab Results Component Value Date TRIG 186 (H) 07/20/2024 TRIG 143 07/16/2022 CHOL 128 07/20/2024 LDLCHOLCAL 61 07/20/2024 HDL 30 (L) 07/20/2024 Currently on a regimen of : Atorvastatin 40 mg po qhs . Plan: continue current regimen. advised to try to adhere to a low cholesterol diet, counseled and educated about diet and exercise,Patient encouraged to come up with a personal goal for weight loss. Relevant Medications Dulaglutide (Trulicity) 3 MG/0.5ML solution auto-injector Depressive disorder Under the care of [facility] Has a psychotherapist and a psychiatrist.(Dr Sims) Currently on: Ambien 10mg po qhs, and Lorazepam 1mg po prn Patient denies any suicidal thoughts or ideations. Has crisis numbers and knows to use them if needed. Mass of left forearm Patient with c/o new onset of small mass left forearm since August 2024, denies any injury to the area On exam she has a superficial palpable mass left forearm approx 2 x1 cm. Tender to palpation Etiology ? Plan: Plain films left forearm, Ortho evaluation 2 months follow up Relevant Orders XR Elbow 3+ Views Left Referral to Orthopaedic Surgery XR Forearm 2 Views Left Routine physical examination Routine physical exam today normal Mammogram: 01/15/2023 Normal. Ordered today Pap: ASCUS, Negative High risk HPV 01/24/2021.last seen by DEBT COUNSELOR 10/2022 was supposed to have a followup 03/2024 Colonoscopy: Seen by [facility] 12[facility]2020 Pt apparently unable to drink the prep they referred her for Colouard and to f/u with them after the results were back. Cologard result NEGATIVE 01/2023 Class 1 obesity due to excess calories with serious comorbidity and body mass index (BMI) of 30.0 to 30.9 in adult Patient has been counseled and educated about diet and exercise. Personal goal of weight loss discussed Co morbidity: DM Relevant Medications Dulaglutide (Trulicity) 3 MG/0.5ML solution auto-injector Other Visit Diagnoses Breast cancer screening by mammogram Relevant Orders BI Mammogram Screening Tomosynthesis Bilateral Dietary counseling Relevant Medications Dulaglutide (Trulicity) 3 MG/0.5ML solution auto-injector Exercise counseling Relevant Medications Dulaglutide (Trulicity) 3 MG/0.5ML solution auto-injector Encounter for immunization Relevant Orders FLU VACCINE TRIVALENT 9412-8160 (Fluarix) 19 yrs + (Completed) This note was drafted using [employer] technology. The patient/patient's guardian has been informed and has consented to the use of this technology: Yes No future appointments. [1] Allergies Allergen Reactions Iodinated Contrast Media Other reaction(s): Diagnostic dye adverse reaction, Diagnostic dye adverse reaction, Diagnostic dyeadverse reaction Iodine Shellfish Allergy Itching documented in this encounter Miscellaneous Notes * Assessment & Plan Note - Kenton Campbell MD - 02/06/2025 11:07 AM EST Associated Problem(s): Class 1 obesity due to excess calories with serious comorbidity and body mass index (BMI) of 30.0 to 30.9 in adult Patient has been counseled and educated about diet and exercise. Personal goal of weight loss discussed Co morbidity: DM * Assessment & Plan Note - Kenton Campbell MD - 02/06/2025 10:59 AM EST Associated Problem(s): Mass of left forearm Patient with c/o new onset of small mass left forearm since August 2024, denies any injury to the area On exam she has a superficial palpable mass left forearm approx 2 x1 cm. Tender to palpation Etiology ? Plan: Plain films left forearm, Ortho evaluation 2 months follow up * Assessment & Plan Note - Kenton Campbell MD - 02/06/2025 10:38 AM EST Associated Problem(s): Depressive disorder Under the care of [facility] Has a psychotherapist and a psychiatrist.(Dr Sims) Currently on: Ambien 10mg po qhs, and Lorazepam 1mg po prn Patient denies any suicidal thoughts or ideations. Has crisis numbers and knows to use them if needed. * Assessment & Plan Note - Kenton Campbell MD - 02/06/2025 10:38 AM EST Associated Problem(s): Routine physical examination Routine physical exam today normal Mammogram: 01/15/2023 Normal. Ordered today Pap: ASCUS, Negative High risk HPV 01/24/2021.last seen by DEBT COUNSELOR 10/2022 was supposed to have a followup 03/2024 Colonoscopy: Seen by [facility] 12/2020 Pt apparently unable to drink the prep they referred her for Colouard and to f/u with them after the results were back. Cologard result NEGATIVE 01/2023 * Assessment & Plan Note - Kenton Campbell MD - 02/06/2025 10:36 AM EST Associated Problem(s): Hyperlipidemia Here for a f/u Patient with elevated lipids. Most recent lipid profile from: Lab Results Component Value Date TRIG 186 (H) 07/20/2024 TRIG 143 07/16/2022 CHOL 128 07/20/2024 LDLCHOLCAL 61 07/20/2024 HDL 30 (L) 07/20/2024 Currently on a regimen of : Atorvastatin 40 mg po qhs . Plan: continue current regimen. advised to try to adhere to a low cholesterol diet, counseled and educated about diet and exercise,Patient encouraged to come up with a personal goal for weight loss. * Assessment & Plan Note - Kenton Campbell MD - 02/06/2025 10:35 AM EST Associated Problem(s): Benign hypertension Patient here for a follow up BP controlled Better control per her report she has a BP monitor at home. She is on a regimen of: Toprol XL 100 mg po daily and Hygroton 25 mg po daily ( In the past developed hyperkalemia. Lisinopril was discontinued due to Hyperkalemia) patient advised to adhere to a lowsodium diet, encouraged about medication compliance, counseled about weight loss. Plan: Continue current regimen 4 months follow up with me * Assessment & Plan Note - Kenton Campbell MD - 02/06/2025 10:34 AM EST Associated Problem(s): Type 2 diabetes mellitus without complication, without long-term current useof insulin (HCC) Pt here for a f/u DM stable Hgb A1c 02/06/2025: 7.1 from 6.2 She is on a regimen of Metformin XR 500 mg 2 tabs po BID, and Trulicity 1.5 mg once a week (In the past pt refused to consider any type of Insulin because in the past she experienced headaches) Microalbumin 07/20/2024 was : 12 Pt not on an SUSHANT inhibitor/ARB Foot check risk of zero Eye exam: Pt reports compliance with Asa 81 mg po daily Plan: Increase Trulicity to 3 mg weekly f/u 4 months Pt advised to: adhere to diabetic diet check your blood sugars regularly check your feet on a daily basis * Assessment & Plan Note - Kenton Campbell MD - 02/06/2025 10:32 AM EST Associated Problem(s): Ventricular septal defect Pt under the care of Dr Thorne, last seen 12/13/2024 Hx of congenital heart disease, 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 Last ECHO 11/28/[address] Thorne showed no changed on small VSD with left to right sunt Pt advised in the need for Antibiotic prophylaxis prior to any invasive dental procedures. documented in this encounter Plan of Treatment Scheduled Orders Name Type Priority Associated Diagnoses Orde r Schedule BI Mammogram Screening Tomosynthesis Bilateral Imaging Routine Breast cancer screening by mammogram Ordered: 02/06/2025 Scheduled Referrals Name Type Priority Associated Diagnoses Order Schedule Referral to Orthopaedic Surgery Outpatient Referral Routine Mass of left forearm Expected: 02/06/2025 (Approximate), Expires: 02/06/2026 documented as of this encounter Goals Goal Patient Goal Type Associated Problems Recent Progress Patient-Stated? Author Remain at or Below Target Blood Pressure General Benign hypertension On track( 024 11:03 AM EDT) No Roosevelt Reis, PharmD Hemoglobin A1c < 7 Result Component Type 2 diabetes mellitus without complication, without long-term current use of insulin 7.1( 10:35 AM EST) No Roosevelt Reis, Jeffrey documented as of this encounter Procedures Procedure Name Priority Date/Time Associated Diagnosis Comments XR ELBOW 3+ VIEWS LEFT Routine 02/07/2025 11:35 AM EST Mass of left forearm XR FOREARM 2 VIEWS LEFT Routine 02/07/2025 11:33 AM EST Mass of left forearm POCT GLYCOSYLATED HEMOGLOBIN (HGB A1C) Routine 02/06/2025 10:35 AM EST Type 2 diabetes mellitus without complication, without long-term current use of insulin (HCC) POCT GLUCOSE Routine 02/06/2025 10:35 AM EST Type 2 diabetes mellitus without complication, without long-term current use of insulin (HCC) documented in this encounter Results * XR Elbow 3+ Views Left (02/07/2025 11:35 AM EST) Anatomical Region Laterality Modality Upper Extremities, Elbow Left Radiogr aphic Imaging 02/07/2025 11:3 5 AM EST Narrative 02/07/2025 11:46 [place] [address] XRay Report Signed Patient: Jacqui Almaraz I MR#: [id number] : 1965 Acct:[id number] Age/Sex: 59 / F ADM Date: 02/07/25 Loc: HO.HHCX Attending Dr: Kenton Olmos MD Ordering Physician: Kenton Olmos MD Date of Service: 02/07/25 Procedure(s): XR elbow LT min 3V Accession Number(s): [id number] cc: Kenton Olmos MD Reason for Exam: palpable superficial mass left forearm EXAMINATION: XR ELBOW, LEFT CLINICAL INFORMATION: palpable superficial mass left forearm COMPARISON: None available. TECHNIQUE: AP, lateral, and oblique views of the left elbow. FINDINGS: No acute cortical disruption or malalignment. No joint effusion. No lytic or blastic lesions. 3 mm calcification near the coronoid process the ulna. No metallic or radiopaque foreign body. 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 EXAMINATION: XR FOREARM, LEFT CLINICAL INFORMATION: palpable superficial mass left forearm COMPARISON: None available. TECHNIQUE: AP and lateral views of the left forearm were obtained. FINDINGS: No acute cortical disruption. No lytic or blastic lesions. No metallic or radiopaque foreign body. No subcutaneous emphysema. IMPRESSION: Normal x-ray, left forearm. Electronically signed by: Dylon Leong MD 02/07/2025 11:44 AM EST Dictated By: Dylon Parada MD Signed By: <Electronically signed by Dylon Camacho MD in OV> 02/07/25 1144 DD/ 1135 TD/TT: 02/07/25 1139 Warp Splitter: Procedure Note Donotuseinterpreter, Image - 02/07/[address] [address] XRay Report Signed Patient: Jacqui Almaraz IMR#: [id number] : 1965Acct:[id number] Age/Sex: 59 / FADM Date: 02/07/25 Loc: HO.HHCX Attending Dr: Kenton Olmos MD Ordering Physician: Kenton Olmos MD Date of Service: 02/07/25 Procedure(s): XR elbow LT min 3V Accession Number(s): [id number] cc: Kenton Olmos MD Reason for Exam: palpable superficial mass left forearm EXAMINATION: XR ELBOW, LEFT CLINICAL INFORMATION: palpable superficial mass left forearm COMPARISON: None available. TECHNIQUE: AP, lateral, and oblique views of the left elbow. FINDINGS: No acute cortical disruption or malalignment. No joint effusion. No lytic or blastic lesions. 3 mm calcification near the coronoid process the ulna. No metallic or radiopaque foreign body. 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 EXAMINATION: XR FOREARM, LEFT CLINICAL INFORMATION: palpable superficial mass left forearm COMPARISON: None available. TECHNIQUE: AP and lateral views of the left forearm were obtained. FINDINGS: No acute cortical disruption. No lytic or blastic lesions. No metallic or radiopaque foreign body. No subcutaneous emphysema. IMPRESSION: Normal x-ray, left forearm. Electronically signed by: Dylon Leong MD 02/07/2025 11:44 AM EST RP Dictated By: Dylon Parada MD Signed By: <Electronically signed by Dylon Camacho MDin OV> 02/07/25 1144 DD/ 1135 TD/TT: 02/07/25 1139 Warp Splitter: us Kenton Campbell MD IMG XR PROCEDURES Fin al Result * XR Forearm 2 Views Left (02/07/2025 11:33 AM EST) Anatomical Region Laterality Modality Upper Extremities, Forearm Left Radio graphic Imaging 02/07/2025 11:3 3 AM EST Narrative 02/07/2025 11:46 [place] [address] XRay Report Signed Patient: Jacqui Almaraz I MR#: [id number] : 1965 Acct:[id number] Age/Sex: 59 / F ADM Date: 02/07/25 Loc: HO.HHCX Attending Dr: Kenton Olmos MD Ordering Physician: Kenton Olmos MD Date of Service: 02/07/25 Procedure(s): XR forearm LT 2V Accession Number(s): [id number] cc: Kenton Olmos MD Reason for Exam: superficial palpable mass left forearm EXAMINATION: XR ELBOW, LEFT CLINICAL INFORMATION: palpable superficial mass left forearm COMPARISON: None available. TECHNIQUE: AP, lateral, and oblique views of the left elbow. FINDINGS: No acute cortical disruption or malalignment. No joint effusion. No lytic or blastic lesions. 3 mm calcification near the coronoid process the ulna. No metallic or radiopaque foreign body. 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 EXAMINATION: XR FOREARM, LEFT CLINICAL INFORMATION: palpable superficial mass left forearm COMPARISON: None available. TECHNIQUE: AP and lateral views of the left forearm were obtained. FINDINGS: No acute cortical disruption. No lytic or blastic lesions. No metallic or radiopaque foreign body. No subcutaneous emphysema. IMPRESSION: Normal x-ray, left forearm. Electronically signed by: Dylon Leong MD 02/07/2025 11:44 AM EST Dictated By: Dylon Parada MD Signed By: <Electronically signed by Dylon Camacho MD in OV> 02/07/25 1144 DD/ 1133 TD/TT: 02/07/25 1139 Warp Splitter: Procedure Note Donotuseinterpreter, Image - 02/07/[address] [address] XRay Report Signed Patient: Jacqui Almaraz IMR#: [id number] : 1965Acct:[id number] Age/Sex: 59 / FADM Date: 02/07/25 Loc: HO.HHCX Attending Dr: Kenton Olmos MD Ordering Physician: Kenton Olmos MD Date of Service: 02/07/25 Procedure(s): XR forearm LT 2V Accession Number(s): [id number] cc: Kenton Olmos MD Reason for Exam: superficial palpable mass left forearm EXAMINATION: XR ELBOW, LEFT CLINICAL INFORMATION: palpable superficial mass left forearm COMPARISON: None available. TECHNIQUE: AP, lateral, and oblique views of the left elbow. FINDINGS: No acute cortical disruption or malalignment. No joint effusion. No lytic or blastic lesions. 3 mm calcification near the coronoid process the ulna. No metallic or radiopaque foreign body. 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 EXAMINATION: XR FOREARM, LEFT CLINICAL INFORMATION: palpable superficial mass left forearm COMPARISON: None available. TECHNIQUE: AP and lateral views of the left forearm were obtained. FINDINGS: No acute cortical disruption. No lytic or blastic lesions. No metallic or radiopaque foreign body. No subcutaneous emphysema. IMPRESSION: Normal x-ray, left forearm. Electronically signed by: Dylon Leong MD 02/07/2025 11:44 AM EST Dictated By: Dylon Parada MD Signed By: <Electronically signed by Dylon Camacho MDin OV> 02/07/25 1144 DD/ 1133 TD/TT: 02/07/25 1139 Warp Splitter: us Kenton Campbell MD IMG XR PROCEDURES Fin al Result * (ABNORMAL) POCT glycosylated hemoglobin (Hgb A1c) (02/06/2025 10:35 AM EST) Hemoglobin A1C 7.1(A) 4.0 - 5.7 % QC Media Lot # [id number] Lot# Expiration Date Blood Capillary blood specimen / Unknown 02/06/2025 10:35 AM EST us Kenton Campbell MD POINT OF CARE TEST EN TER/EDIT ORDERABLES Final Result * (ABNORMAL) POCT glucose manually resulted (02/06/2025 10:35 AM EST) Glucose Blood, POC 225(A) 60 - 200 mg/dL QC Media Lot # [id number] Lot# Expiration Date Blood Capillary blood specimen / Unknown 02/06/2025 10:35 AM EST Result Laura Campbell MD POINT OF CARE TEST EN TER/EDIT ORDERABLES Final Result documented in this encounter Visit Diagnoses Diagnosis Type 2 diabetes mellitus without complication, without long-term current use of insulin (HCC)- Primary Ventricular septal defect Benign hypertension Essential hypertension, benign Mixed hyperlipidemia Breast cancer screening by mammogram Depressive disorder Depressive disorder, not elsewhere classified Mass of left forearm Routine physical examination Routine general medical examination at a health care facility Class 1 obesity due to excess calories with serious comorbidity and body mass index (BMI) of 30.0 to 30.9 in adult Dietary counseling Dietary surveillance and counseling Exercise counseling Encounter for immunization documented in this encounter Additional Health Concerns Assessment Noted Time PHQ-9 Depression Total Score: 9 02/07/20 25 10:33 AM EST documented as of this encounter Care Teams Chip Unloader Relationship Specialty Start Date End Date Kenton Jefferson MD [address] [place] [address] PCP - General Internal Medicine 12/25/13 Roosevelt Reis, Jeffrey [address] [place] [id number] Pharmacist Internal Medicine 05/26/22 documented as of this encounter
--- NOTE | ~2025-02-07 | XR_ITS ---
EXAMINATION: XR ELBOW, LEFT CLINICAL INFORMATION: palpable superficial mass left forearm COMPARISON: None available. TECHNIQUE: AP, lateral, and oblique views of the left elbow. FINDINGS: No acute cortical disruption or malalignment. No joint effusion. No lytic or blastic lesions. 3 mm calcification near the coronoid process the ulna. No metallic or radiopaque foreign body. 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 EXAMINATION: XR FOREARM, LEFT CLINICAL INFORMATION: palpable superficial mass left forearm COMPARISON: None available. TECHNIQUE: AP and lateral views of the left forearm were obtained. FINDINGS: No acute cortical disruption. No lytic or blastic lesions. No metallic or radiopaque foreign body. No subcutaneous emphysema. IMPRESSION: Normal x-ray, left forearm. Electronically signed by: Dylon Leong MD 02/07/2025 11:44 AM JEY
--- NOTE | ~2025-02-07 | XR_ITS ---
EXAMINATION: XR ELBOW, LEFT CLINICAL INFORMATION: palpable superficial mass left forearm COMPARISON: None available. TECHNIQUE: AP, lateral, and oblique views of the left elbow. FINDINGS: No acute cortical disruption or malalignment. No joint effusion. No lytic or blastic lesions. 3 mm calcification near the coronoid process the ulna. No metallic or radiopaque foreign body. 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 EXAMINATION: XR FOREARM, LEFT CLINICAL INFORMATION: palpable superficial mass left forearm COMPARISON: None available. TECHNIQUE: AP and lateral views of the left forearm were obtained. FINDINGS: No acute cortical disruption. No lytic or blastic lesions. No metallic or radiopaque foreign body. No subcutaneous emphysema. IMPRESSION: Normal x-ray, left forearm. Electronically signed by: Dylon Leong MD 02/07/2025 11:44 AM JEY
--- OUTSIDE RECORDS SUMMARY | 2025-02-07 12:16 | XMS_ITS | Encounter Summary ---
Author Organization [employer] Address [address] [facility] [address] [place] [address] Care Team Providers Care Radio Aerial Installer Name Role Phone Kenton Jefferson MD Primary Care Provide r Roosevelt Reis PharmD Unavailable [phone] Encounter Details Date Type Department Care Team ([facility] st Contact Info) Description 12/28/2022 Telephone [facility] MEDICINE [address] [place] [address] Kenton Jefferson MD [address] [place] [address] Social History Tobacco Use Types Packs/Day Years Used Date Smoking Tobacco: Every Day Cigarettes Passive Smoke Exposure: Current Smokeless Tobacco: Never Alcohol Use Standard Drinks/Week Comments Never 0 (1 standard drink = 0.6 oz pur e alcohol) Depression Answer Date Recorded Patient Health Questionnaire-9 Score 5 04/21/2022 Depression Answer Date Recorded Patient Health Questionnaire-2 Score 2 04/21/2022 Comments Unknown Sex and Gender Information Value Date Recorded Sex Assigned at Female 01/26/2022 10:16 AM EDT Legal Sex Female 10:16 AM EDT Gender Identity Female 01/26/2022 10:16 AM EDT Sexual Orientation Straight 01/26/2022 10 :16 AM EDT documented as of this encounter Plan of Treatment Not on file documented as of this encounter Visit Diagnoses Not on filedocumented in this encounter Additional Health Concerns Assessment Noted Time PHQ-9 Depression Total Score: 5 04/21/19 23 1:44 PM EST documented as of this encounter Care Teams Radio Aerial Installer Relationship Specialty Start Date End Date Kenton Jefferson MD [address] [place], [place] [phone] PCP - General Internal Medicine 12/25/13 Roosevelt Reis PharmD [address] [place] [address] Pharmacist Internal Medicine 05/26/22 documented as of this encounter
--- OUTSIDE RECORDS SUMMARY | 2025-02-07 12:16 | XMS_ITS | Encounter Summary ---
Author Organization [employer] Address [address] [facility] 7t [place] [address] Care Team Providers Care Workforce Investment Act Career Manager Name Role Phone Kenton Jefferson MD Primary Care Provide r Roosevelt Reis PharmD Unavailable [phone] Reason for Visit * Reason Comments Med Refill Encounter Details Date Type Department Care Team (Late st Contact Info) Description 02/04/2024 Refill [facility] MEDICINE [address] [place] [address] Kenton Jefferson MD [address] [place], [place] [id number] Type 2 diabetes mellitus without complication, without long-term current use of insulin ([facility]) Social History Tobacco Use Types Packs/Day Years [...] Answer Date Recorded Patient Health Questionnaire-9 Score 0 02/01/2024 Patient Health Questionnaire-9 Score 0 02/01/2024 Last PHQ-9: Questionnaire Data Not on file 1 04/02/2023 Housing Stability Answer Date Recorded What is your housing situation today? I have love sing 05/18/[address] you li ve. Do you have problems with any of the following? None of the above 05/18/2023 Food Insecurity Answer Date Recorded Within the past 12 months, y ou worried that your food would run out before you got money to buy more: Never True 05/18/2023 Within the past 12 months,th e food you bought just didn't last and you didn't have enough money to get more: Never True Transportation Answer Date Recorded In the past 12 months, has l ack of transportation kept you from medical appts, meetings, work or from getting things needed for daily living? No 05/18/2023 Utilities Answer Date Recorded In the past 12 months, has t he electric, gas, oil or water company threatened to shut off services in your home? No 05/18/2023 Depression Answer Date Recorded Patient Health Questionnaire-2 Score 0 02/01/2024 Internet Access Answer Date Recorded Internet Access Q1 Yes 01/20/2024 Internet Access Q2 Not on file 01/20/2024 Comments Unknown Sex and Gender Information Value Date Recorded Sex Assigned at Female 01/26/2022 10:16 AM EDT Legal Sex Female 10:16 AM EDT Gender Identity Female 01/26/2022 10:16 AM EDT Sexual Orientation Straight 01/26/2022 10 :16 AM EDT documented as of this encounter Plan of Treatment Not on file documented as of this encounter Goals Goal Patient Goal Type Associated Problems Recent Progress Patient-Stated? Author Remain at or Below Target Blood Pressure General Benign hypertension On track( 024 11:03 AM EDT) No Roosevelt Reis, PharmD Hemoglobin A1c < 7 Result Component Type 2 diabetes mellitus without complication, without long-term current use of insulin 7.1( 5 10:35 AM EST) No Roosevelt Reis PharmD documented as of this encounter Visit Diagnoses Diagnosis Type 2 diabetes mellitus without complication, without long-term current use of insulin (HCC) documented in this encounter Additional Health Concerns Assessment Noted Time PHQ-9 Depression Total Score: 0 02/01/20 10:26 AM EST documented as of this encounter Care Teams Workforce Investment Act Career Manager Relationship Specialty Start Date End Date Kenton Jefferson MD [address] [place] [address] PCP - General Internal Medicine 12/25/13 Roosevelt Reis, Jeffrey [address] [place] [address] Pharmacist Internal Medicine 05/26/22 documented as of this encounter
--- OUTSIDE RECORDS SUMMARY | 2025-02-07 12:16 | XMS_ITS | Encounter Summary ---
Author Organization [employer] Address [address] [facility] [address] [place] [address] Care Team Providers Care Temperer Name Role Phone Kenton Jefferson MD Primary Care Provide r Roosevelt Reis PharmD Unavailable [phone] Encounter Details Date Type Department Care Team (Latest Contact Info) Description 02/06/2025 Travel Social History Tobacco Use Types Packs/Day Years [...] AM EDT documented as of this encounter Functional Status * Over the past 2 weeks, how often have you been bothered by any of the following problems? Question Answer Date of Assessment Author Patient Health Questionnaire -2 Score 5 02/06/2025 10:33 AM You Patel MA * Little interest or pleasure in doing things Answer Date of Assessment Author Nearly every day 02/06/2025 10:33 AM Wanda Patel MA * Feeling down, depressed, or hopeless [...] Patel MA documented as of this encounter Plan of [...] documented as of this encounter Care Teams Temperer Relationship Specialty Start Date End Date Kenton Jefferson MD [address] [place] [phone] PCP - General Internal Medicine 12/25/13 Roosevelt Reis PharmD [address] [place] [phone] Pharmacist Internal Medicine 05/26/22 documented as of this encounter
--- OUTSIDE RECORDS SUMMARY | 2025-02-07 12:16 | XMS_ITS | Clinical Summary ---
Author Organization [facility] Address [address] [place] [address] Care Team Providers Care Casing Operator Name Role Phone Unavailable Primary Care Provider Unavailabl e Social History Tobacco Use Types Packs/Day Years Used Date Smoking Tobacco: Never Assessed Comments Unknown Sex and Gender Information Value Date Recorded Sex Assigned at Not on file Legal Sex Female 9:08 PM EST Gender Identity Not on file Sexual Orientation Not on file Plan of Treatment Health Maintenance Due Date Last Done Comments Breast Cancer Screening 1965 Colorectal Cancer Screening: Colonoscopy 1965 DTaP,Tdap,and Td Vaccines (1 - Tdap) 09/18/1986 Hepatitis B Vaccines (1 of 3 - 19+ 3-dose series) 09/18/1986 Cervical Cancer Screening: P ap Smear 09/18/1988 Pneumococcal Vaccine: 50+ Ye ars (1 of 1 - PCV) 09/18/2017 Zoster Vaccines (1 of 2) 09/18/2017 HIV Screening 04/23/2023 Hepatitis C Screening 04/23/2023 Social Influencers of Health Screening 04/23/2023 Depression Screening 03/29/2024 COVID-19 Vaccine (1 - 2024-2 6 season) 2024 Influenza Vaccine (#1) 2024 RSV Immunization Adult Patie nts (1 - 1-dose 75+ series) 09/18/2042 HIB Vaccines Aged Out No longer eligi ble based on patient's age to complete this topic HPV Vaccines Aged Out No longer eligi ble based on patient's age to complete this topic Hepatitis A Vaccines Aged Out No long er eligible based on patient's age to complete this topic IPV Vaccines Aged Out No longer eligi ble based on patient's age to complete this topic MMR Vaccines Aged Out No longer eligi ble based on patient's age to complete this topic Meningococcal ACWY Vaccine Aged Out N o longer eligible based on patient's age to complete this topic Meningococcal B Vaccine Aged Out No l onger eligible based on patient's age to complete this topic RSV Immunization Patients Un abrahan 20 months Aged Out No longer eligible b ased on patient's age to complete this topic Varicella Vaccines Aged Out No longer eligible based on patient's age to complete this topic
--- OUTSIDE RECORDS SUMMARY | 2025-02-07 12:16 | XMS_ITS | Clinical Summary ---
Author Organization [employer] Address [address] [place] [address] [address] [place] [address] Care Team Providers Care Book Repairer Name Role Phone Kenton Jefferson MD Primary Care Provide r Roosevelt Reis PharmD Unavailable [phone] Allergies Active Allergy Reactions Criticality Noted Date Comments Iodinated Contrast Media 04/20/2022 Other reaction(s): Diagnostic dye adverse reaction, Diagnostic dye adverse reaction, Diagnostic dye adverse reaction Iodine 10/23/2015 Shellfish Allergy Itching 04/20/2022 Medications escitalopram (Lexapro) 5 MG tablet Take 5 mg by mouth in the morning. 022 Active LORazepam (Ativan) 1 MG tablet Take 1 mg by mouth if needed each day. 023 Active zolpidem (Ambien) 10 MG tablet Take 10 mg by mouth at bedtime. 023 Active Misc. Devices (Pill Box 7 Day) misc USE DIRECTED 024 Active fluticasone (Flonase) 50 MCG/ACT nasal sprayIndications :Seasonal allergies INHALE 1 SPRAY IN EACH NOSTRIL IN THE MORNING. USE DIRECTED. 48 g 024 Active EPINEPHrine (EpiPen 2-Parish) 0.3 MG/0.3ML injection syringe Inject 0.3 mL into the muscle. inject 0.3 milliliter by intramuscular route once as needed for anaphylaxis Active atorvastatin (Lipitor) 40 MG tabletIndication s:Mixed hyperlipidemia TAKE 1 TABLET BY MOUTH AT BEDTIME 90 tablet 3 02/08/20 25 11:46 AM EST 025 Active chlorthalidone (Hygroton) 25 MG tabletIndication s:Benign hypertension TAKE 1 TABLET BY MOUTH EVERY MORNING 90 tablet 3 02/08/20 25 11:46 AM EST 025 Active metoprolol succinate XL (Toprol-XL) 100 MG 24 hr tabletIndication s:Benign hypertension Take 1 tablet (100 mg) by mouth in the morning. 90 tablet 3 02/08/20 25 11:46 AM EST 025 2025 Active omeprazole (PriLOSEC) [address] capsuleIndicatio ns:Gastroesophag eal reflux disease without esophagitis Do not crush or chew. 90 capsule 1 025 Active TRUEplus Lancets 33G miscIndications: Type 2 diabetes mellitus without complication, unspecified whether superintendent container terminal insulin use USE DIRECTED TO TEST BLOOD SUGAR TWICE DAILY 100 each 6 Active glucose blood (FREESTYLE LITE) test stripIndications :Diabetes Mellitus TEST BLOOD SUGAR TWICE DAILY 100 strip 6 Active metFORMIN XR (Glucophage-XR) 500 MG 24 hr tabletIndication s:Type 2 diabetes mellitus without complication, without long-term current use of insulin (HCC) TAKE 2 TABLETS BY MOUTH EVERY DAY IN THE MORNING AND IN THE EVENING WITH FOOD 360 tablet 3 025 Active cetirizine (ZyrTEC) 10 MG tabletIndication s:Seasonal allergies Take 1 tablet (10 mg) by mouth in the morning. 90 tablet 1 02/08/20 25 11:46 AM EST 025 Active Dulaglutide (Trulicity) 3 MG/0.5ML solution auto-injectorInd ications:Type 2 diabetes mellitus without complication, without long-term current use of insulin ([facility]) Inject 3 mg under the skin 1 (one) time per week. 0.5 mL 6 025 Active insulin glargine (Lantus SoloStar) 100 UNIT/ML penIndications:T ype 2 diabetes mellitus without complication, without long-term current use of insulin (HCC) Inject 8 Units under the skin at bedtime. 3 mL 3 024 2024 Discontinued(T herapy completed) cetirizine (ZyrTEC) 10 MG tabletIndication s:Seasonal allergies TAKE 1 TABLET BY MOUTH EVERY MORNING 90 tablet 1 025 2024 Discontinued(R eorder (will not trigger notification to Pharmacy)) Trulicity 1.5 MG/0.5ML solution auto-injectorInd ications:Type 2 diabetes mellitus without complication, without long-term current use of insulin (HCC) INJECT ONE PEN (=1.5MG) SUBCUTANEOUSLY ONCE A WEEK DIRECTED 2 mL 1 025 2024 Discontinued Trulicity 1.5 MG/0.5ML solution auto-injectorInd ications:Type 2 diabetes mellitus without complication, without long-term current use of insulin (HCC) INJECT ONE PEN (=1.5MG) SUBCUTANEOUSLY ONCE A WEEK DIRECTED 2 mL 1 025 2024 Discontinued(D ose adjustment) Active Problems Problem Noted Date Diagnosed Date Mass of left forearm 02/06/2025 Assessment & Plan (02/06/2025 11:11 AM EST): Patient with c/o new onset of small mass left forearm since August 2024, denies any injury to the area On exam she has a superficial palpable mass left forearm approx 2 x1 cm. Tender to palpation Etiology ? Plan: Plain films left forearm, Ortho evaluation 2 months follow up Tobacco dependence 04/19/2023 Overview (06/21/2023): Pharmacotherapy: (updated 04/19/2023) - None History: (updated 06/21/2023) Smoking since 2010. Currently smokes about 1-3 cigarettes per day and working towards quitting on her own. Tried gum in past but developed nausea. Not interested in retrying at this time. Assessment & Plan (04/19/2023 11:47 AM EST): Assessment: - Not at goal of tobacco free lifestyle per USPSTF Plan: - Continue to try cutting down daily cigarette consumption. Dysplasia of cervix, low grade (BHANU 1) Assessment & Plan (02/01/2024 10:32 AM EST): Pap Smear showed ASCUS neg high risk HPV Colposcopy 01/24/2021 showed BHANU I, Pt under the care of Carlos Lim , was seen 11/09/2022 , cancelled 2 appointments has a follow up scheduled 03/2024 Assessment & Plan (10/28/2023 11:34 AM EDT): Pap Smear showed ASCUS neg high risk HPV Colposcopy 01/24/2021 showed BHANU I, Pt under the care of Carlos Lim , was seen 11/09/2022 Tells me has an upcoming appointment Assessment & Plan (11/10/2022 10:38 AM EDT): Pap Smear showed ASCUS neg high risk HPV Colposcopy 01/24/2021 showed BHANU I, Pt under the care of Carlos Lim , was seen 11/09/2022 Assessment & Plan (07/30/2022 4:20 PM EDT): Pap Smear showed ASCUS neg high risk HPV Colposcopy 01/24/2021 showed BHANU I, Pt was supposed to follow with Carlos Lim for a LEEP cone, pt tells me they have reschedule her appointment . Will contact their office to find out Assessment & Plan (04/21/2022 1:54 PM EST): Pap Smear showed ASCUS neg high risk HPV Colposcopy 01/24/2021 showed BHANU I, 1 year f/u recommended. Pt to follow with Carlos Lim Routine physical examination 04/21/2022 Overview (04/19/2023): - Due for Hepatits B vaccine - Due for Tdap in June 2023 Assessment & Plan (02/06/2025 10:38 AM EST): Routine physical exam today normal Mammogram: 01/15/2023 Normal. Ordered today Pap: ASCUS, Negative High risk HPV 01/24/2021.last seen by [facility] 10/2022 was supposed to have a follow up 03/2024 Colonoscopy: Seen by [facility] 12/2020 Pt apparently unable to drink the prep they referred her for Colouard and to f/u with them after the results were back. Cologard result NEGATIVE 01/2023 Assessment & Plan (02/01/2024 10:35 AM EST): Routine physical exam today normal Mammogram: 01/15/2023 Normal. Pap: ASCUS, Negative High risk HPV 01/24/2021.last seen by [facility] 10/2022 has a follow up 03/2024 Colonoscopy: Seen by [facility] 12/2020 Pt apparently unable to drink the prep they referred her for Colouard and to f/u with them after the results were back. Cologard result NEGATIVE 01/2023 Assessment & Plan (05/18/2023 9:24 AM EST): Mammogram: 01/15/2023 Normal. Pap: ASCUS, Negative High risk HPV 01/24/2021.Asked my Nurse to contact [facility] office to make sure she has a follow up Colonoscopy: Seen by [facility] 12/2020 Pt apparently unable to drink the prep they referred her for Colouard and to f/u with them after the results were back. Cologard result NEGATIVE 01/2023 Assessment & Plan (04/20/2023 8:59 AM EST): Patient here for a routine physical exam, no complaints or concerns. Exam today unchanged [facility]: Mammogram: 01/15/2022 Normal. Tells me she had a repeat a few days ago records requested Pap: ASCUS, Negative High risk HPV 01/24/2021.Asked my Nurse to contact [facility] office to make sure she has a follow up Colonoscopy: Seen by [facility] 12/2020 Pt apparently unable to drink the prep they referred her for Colouard and to f/u with them after the results were back. Cologard result NEGATIVE 01/2023 Today she tells me she has the Cologuard kit but has yet to do it, once again today I discussed with her the risk of missing deadly conditions such as colorectal cancer pt verbalized understanding Assessment & Plan (01/28/2023 11:23 AM EDT): Patient here for a routine physical exam, no complaints or concerns. Exam today unchanged [facility]: Mammogram: 01/15/2022 Normal. Tells me she had a repeat a few days ago records requested Pap: ASCUS, Negative High risk HPV 01/24/2021.Asked my Nurse to contact [facility] office to make sure she has a follow up Colonoscopy: Seen by [facility] 12/2020 Pt apparently unable to drink the prep they referred her for Colouard and to f/u with them after the results were back. Today she tells me she has the Cologuard kit but has yet to do it, once again today I discussed with her the risk of missing deadly conditions such as colorectal cancer pt verbalized understanding Assessment & Plan (11/10/2022 10:44 AM EDT): Mammogram: 01/15/2022 Normal Pap: ASCUS, Negative High risk HPV 01/24/2021.Asked my Nurse to contact [facility] office to make sure she has a follow up Colonoscopy: Seen by [facility] 12/2020 Pt apparently unable to drink the prep they referred her for Colouard and to f/u with them after the results were back. Today she tells me she has the Cologuard kit but has yet to do it Today we explained the instructions to patients and she will do it again Assessment & Plan (08/03/2022 11:24 AM EDT): - Appt for vaccines scheduled Assessment & Plan (07/30/2022 4:36 PM EDT): Mammogram: 01/15/2022 Normal Pap: ASCUS, Negative High risk HPV 01/24/2021.Asked my Nurse to contact [facility] office to make sure she has a follow up Colonoscopy: Seen by [facility] 12/2020 Pt apparently unable to drink the prep they referred her for Colouard and to f/u with them after the results were back. Today we accessed the Cologuard Portal and it appears pt did not understand the instructions so this was never processed. Today we explained the instructions to patients and she will do it again Assessment & Plan (04/21/2022 1:56 PM EST): Colonoscopy: Seen by [facility] 12/2020 Pt apparently unable to drink the prep they referred her for Colouard and to f/u with them after the results were back Right elbow pain 04/21/2022 Assessment & Plan (04/21/2022 1:58 PM EST): Pt with medial epicondylitis Given an elbow brace Recommended to continue ibrufen xray 12/05/2021 Negative for fracture, not improving will refer to Ortho for consideration of steroid injection Ventricular septal defect 04/20/2022 Assessment & Plan (02/06/2025 10:32 AM EST): Pt under the care of Dr Thorne, [...] prophylaxis prior to any invasive dental procedures. 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 Last ECHO 11/23/[address] Thorne showed no changed on small VSD with left to right sunt Pt advised in the need for Antibiotic prophylaxis prior to any invasive dental procedures. 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 Pt advised in the need for Antibiotic prophylaxis prior to any invasive dental procedures. Assessment & Plan (04/20/2023 8:52 AM EST): Pt under the care of Dr Thorne, last seen 01/05/2023 Echo done 11/26/2021 was unchanged has one scheduled Hx of congenital heart disease, 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 Pt advised in the need for Antibiotic prophylaxis prior to any invasive dental procedures. Assessment & Plan (01/28/2023 11:07 AM EDT): Pt under the care of Dr Thorne, last seen 01/05/2023 Echo done 11/26/2021 was unchanged has one scheduled Hx of congenital heart disease, 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 Pt advised in the need for Antibiotic prophylaxis prior to any invasive dental procedures. Assessment & Plan (04/21/2022 1:55 PM EST): Pt under the care of Dr Thorne, last seen 12/03/2021 Echo done 11/26/2021 was unchanged Hx of congenital heart disease, 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 Pt advised in the need for Antibiotic prophylaxis prior to any invasive dental procedures. Hyperlipidemia 05/21/2016 Assessment & Plan (02/06/2025 10:36 AM EST): Here for a f/u Patient with elevated [...] diet, counseled and educated about diet and exercise, Patient encouraged to come up with a personal goal for weight loss. Assessment & Plan (02/01/2024 10:30 AM EST): Here for a f/u Patient with elevated lipids. Most recent lipid profile from: 07/16/2022 shows a total cholesterol of: 134 triglycerides of: 143 HDL of: 34 and LDL of: 76 Currently on a regimen of : Atorvastatin 40 mg po qhs . Plan: continue current regimen, repeat Lipid profile advised to try to adhere to a low cholesterol diet, counseled and educated about diet and exercise, Patient encouraged to come up with a personal goal for weight loss. Assessment & Plan (07/30/2022 1:11 PM EDT): Here for a f/u Patient with elevated lipids. Most recent lipid profile from: 07/16/2022 shows a total cholesterol of: 134 triglycerides of: 143 HDL of: 34 and LDL of: 76 Currently on a regimen of : Atorvastatin 40 mg po qhs . Plan: continue current regimen, advised to try to adhere to a low cholesterol diet, counseled and educated about diet and exercise, Patient encouraged to come up with a personal goal for weight loss. Assessment & Plan (04/21/2022 1:51 PM EST): Here for a f/u Patient with elevated lipids. Most recent lipid profile from: 06/17/2021 shows a total cholesterol of: 95 triglycerides of: 97 HDL of: 30 and LDL of: 47 Currently on a regimen of : Atorvastatin 40 mg po qhs . Plan: continue current regimen, advised to try to adhere to a low cholesterol diet, counseled and educated about diet and exercise, Patient encouraged to come up with a personal goal for weight loss. Type 2 diabetes mellitus wit hout complication, without long-term current use of insulin 01/23/2016 Overview (06/21/2023): Pharmacotherapy: (updated 06/21/2023) - Trulicity 0.75 mg weekly - Metformin 1000 mg BID On statin? Y - Atorvastatin 40 mg daily History: (updated 06/21/2023) CDTM since Jan 2021. No longer using lantus; reported ADR of headaches. A1c has been at goal for the past 3 readings. Labs WNL. Checking BG daily in morning and ranges 100-120s mg/dl. Assessment & Plan (02/06/2025 10:40 AM EST): Pt here for a f/u DM stable [...] check your feet on a daily basis Assessment & Plan (02/01/2024 10:33 AM EST): Pt here for a f/u DM controlled Hgb A1c 02/01/2024: 6.2 from 9.9 She is on a regimen of Metformin XR 500 mg 2 tabs po BID, and Trulicity 1.5 mg once a week Never started the Lantus . Pt absolutely refuses to consider any type of Insulin because in the past she experienced headaches, despite my best efforts she refuses. Microalbumin 07/16/2022 was : 2.5 Pt not on an SUSHANT inhibitor/ARB Foot check risk of zero Eye exam: 10/02/2016 Pt reports compliance with Asa 81 mg po daily Plan: Continue current regimen f/u 4 months Pt advised to: adhere to diabetic diet check your blood sugars regularly check your feet on a daily basis Assessment & Plan (11/09/2023 11:52 AM EDT): Pt here for a f/u Did not bring her Glucometer Hgb A1c 11/09/2023: 9.9 She is on a regimen of Metformin XR 500 mg 2 tabs with dinner, Never started the Lantus . Pt absolutely refuses to consider any type of Insulin because in the past she experienced headaches, despite my best efforts she refuses. Microalbumin 10/11/2020 was : 14 Pt not on an SUSHANT inhibitor/ARB Foot check risk of zero Eye exam: 10/02/2016 Pt reports compliance with Asa 81 mg po daily Plan: Increase Trulicity to 1.5 once a week , Increase Metformin er 500 MG 2 tabs po BID ( pt tells me she wants to try the higher dose of Metformin. ) f/u 4 weeks Pt advised to: adhere to diabetic diet check your blood sugars regularly check your feet on a daily basis Assessment & Plan (10/28/2023 12:35 PM EDT): Pt here for a f/u Did not bring glucometer Hgb A1c ordered machine not working Blood glucose HIGH She is on a regimen of Metformin XR 500 mg 2 tabs with dinner and Trulicity 0.75 once a week (Pt unable to tolerate higher dose of Metformin she stopped Lantus since August because she felt it was giving her a headache) Microalbumin 10/11/2020 was : 14 Pt not on an SUSHANT inhibitor/ARB Foot check risk of zero Eye exam: 10/02/2016 Pt reports compliance with Asa 81 mg po daily Plan : Restart Lantus 8 units subcutaneous at bedtime f/u 1 week Pt advised to: adhere to diabetic diet check your blood sugars regularly check your feet on a daily basis Assessment & Plan (06/21/2023 10:45 AM EDT): Monitoring: Lab Results Component Value Date HGBA1C 5.8 05/03/2023 Assessment: A1c is at goal of less than 7% per ADA guidelines Plan: - Continue with current therapy and plan Assessment & Plan (04/20/2023 8:54 AM EST): Pt here for a f/u Blood sugars at home average down to 112 Hgb A1c 01/28/2023 was: 6.1 Will repeat She is on a regimen of Metformin XR 500 mg 2 tabs with dinner and Trulicity 0.75 once a week (Pt unable to tolerate higher dose of Metformin she stopped Lantus since August because she felt it was giving her a headache Microalbumin 10/11/2020 was : 14 Pt not on an SUSHANT inhibitor/ARB Foot check risk of zero Eye exam: 10/02/2016 Pt reports compliance with Asa 81 mg po daily Plan : Continue current regimen f/u 4 months Pt advised to: adhere to diabetic diet check your blood sugars regularly check your feet on a daily basis Assessment & Plan (04/19/2023 11:42 AM EST): Assessment: - A1c is at goal of less than 7% per ADA guidelines - Eye Exam past due - Diabetic Foot check past due Plan: - Referral to [facility] Eye care placed - Continue with current therapy and monitoring. Assessment & Plan (02/01/2023 9:11 AM EST): Assessment: A1c is at goal of less than 7% per ADA guidelines Plan: - Due for eye exam and foot check. Ref to opt placed. Assessment & Plan (01/28/2023 11:06 AM EDT): Pt here for a f/u Blood sugars at home average down to 112 Hgb A1c 01/28/2023 was: 6.1 She is on a regimen of Metformin XR 500 mg 2 tabs with dinner and Trulicity 0.75 once a week (Pt unable to tolerate higher dose of Metformin she stopped Lantus since August because she felt it was giving her a headache Microalbumin 10/11/2020 was : 14 Pt not on an SUSHANT inhibitor/ARB Foot check risk of zero Eye exam: 10/02/2016 Pt reports compliance with Asa 81 mg po daily Plan : Continue current regimen f/u 4 months Pt advised to: adhere to diabetic diet check your blood sugars regularly check your feet on a daily basis Assessment & Plan (11/10/2022 10:36 AM EDT): Pt here for a f/u Blood sugars at home average down to 132 Hgb A1c 11/10/2022 was: 5.9 She is on a regimen of Metformin XR 500 mg 2 tabs with dinner and Trulicity 0.75 once a week (Pt unable to tolerate higher dose of Metformin she stopped Lantus since August because she felt it was giving her a headache Microalbumin 10/11/2020 was : 14 Pt not on an SUSHANT inhibitor/ARB Foot check risk of zero Eye exam: 10/02/2016 Pt reports compliance with Asa 81 mg po daily Plan : Continue current regimen f/u 4 months Pt advised to: adhere to diabetic diet check your blood sugars regularly check your feet on a daily basis Assessment & Plan (04/21/2022 1:50 PM EST): Pt here for a f/u Blood sugars at home average down to 132 Hgb A1c 04/21/2022 was: 5.7 She is on a regimen of Metformin ER 500 mg 2 tabs with dinnerand Trulicity 0.75 once a week (Pt unable to tolerate higher dose of Metformin she stopped Lantus since August because she felt it was giving her a headache Microalbumin 10/11/2020 was : 14 Pt not on an SUSHANT inhibitor/ARB Foot check risk of zero Eye exam: 10/02/2016 Pt reports compliance with Asa 81 mg po daily Plan : Continue current regimen f/u 4 months Pt advised to: adhere to diabetic diet check your blood sugars regularly check your feet on a daily basis Benign hypertension 09/05/2013 Overview (06/21/2023): Pharmacotherapy: (updated 04/19/2023) - Chlorthalidone 25mg daily - Metoprolol XL 100mg daily History: (updated 06/20/2023) Patient has Right bundle branch block; patient developed hyperkalemia while on lisinopril in apr 2023. This was stopped and changed to chlorthalidone with significant improvement to BP. SBP now avg high-110s and DBP avg mid-80s Assessment & Plan (02/06/2025 10:35 AM EST): Patient here for a follow up BP controlled Better control per her report she has a BP monitor at home. She is on a regimen of: Toprol XL 100 mg po daily and Hygroton 25 mg po daily ( In the past developed hyperkalemia. Lisinopril was discontinued due to Hyperkalemia) patient advised to adhere to a low sodium diet, encouraged about medication compliance, counseled about weight loss. Plan: Continue current regimen 4 months follow up with me Assessment & Plan (06/21/2023 11:00 AM EDT): Assessment: - BP is at goal of less than 140/90 per JNC8 guidelines Plan/ Recommendations: - Continue with current therapy and monitoring. F/U in 6 months. Monitoring: Potassium (mmol/L) Date Value 05/12/2023 4.2 05/03/2023 5.7 (H) BP Readings from Last 2 Encounters: 05/18/23 149/78 04/19/23 (!) 140/100 Assessment & Plan (05/18/2023 9:48 AM EST): Patient here for a follow up BP slightly elevated Follows with our CDTM team as well Better control per her report she has a BP monitor at home. She is on a regimen of: Toprol XL 100 mg po daily and Hygroton 12.5 mg po daily ( recently started after she developed hyperkalemia. Lisinopril was discontinued due to Hyperkalemia. Most recent K back down to 4.2 from 5.7 patient advised to adhere to a low sodium diet, encouraged about medication compliance, counseled about weight loss. CDTM follow up 4 months follow up with pa Assessment & Plan (04/20/2023 8:55 AM EST): Patient here for a follow up Follows with our CDTM team as well Better control per her report she has a BP monitor at home. She is on a regimen of: Toprol XL 100 mg po daily and Lisinopril 40 mg po daily recently increased at [facility] . Most recent electrolytes, Bun and Creatinine done on: 07/16/2022 were within normal limits. Repeat BMP patient advised to adhere to a low sodium diet, encouraged about medication compliance, counseled about weight loss. CDTM follow up 4 months follow up with pa Assessment & Plan (04/19/2023 11:44 AM EST): Assessment: - BP is not at goal of less than 140/90 per JNC8 guidelines Plan: - Increase Lisinopril to 40 mg daily Assessment & Plan (02/01/2023 12:03 PM EST): Assessment: BP is at goal of less than 140/90 per JNC8 guidelines Plan: - Continue with current therapy; f/u in 3 months. - Refills sent to cover patient while on vacation in [place] Assessment & Plan (01/28/2023 11:22 AM EDT): Patient here for a follow up Follows with our CDTM team as well BP uncontrolled, mainly because she did not take her medications again this morning, she has a BP monitor at home. She is on a regimen of: Toprol XL 100 mg po daily. And her [employer] recently increased her Lisinopril to 20 mg po daily Most recent electrolytes, Bun and Creatinine done on: 07/16/2022 were within normal limits. patient advised to adhere to a low sodium diet, encouraged about medication compliance, counseled about weight loss. CDTM follow up 3 months follow up with me Assessment & Plan (11/10/2022 10:45 AM EDT): Patient here for a follow up BP uncontrolled, mainly because she did not take her medications, she has a BP monitor at home and reports her systolics around 115 to 120 She is on a regimen of: Toprol XL 100 mg po daily. and Lisinopril 10 mg po daily Most recent electrolytes, Bun and Creatinine done on: 07/16/2022 were within normal limits. patient advised to adhere to a low sodium diet, encouraged about medication compliance, counseled about weight loss. 1 month follow up with RN for a BP check Assessment & Plan (07/30/2022 1:09 PM EDT): Patient here for a follow up BP controlled She is on a regimen of: Toprol XL 100 mg po daily. and Lisinopril 10 mg po daily Most recent electrolytes, Bun and Creatinine done on: 07/16/2022 were within normal limits. patient advised to adhere to a low sodium diet, encouraged about medication compliance, counseled about weight loss. Assessment & Plan (06/11/2022 9:15 AM EDT): Televisit Pt seen in the ER in April with c/o fluctuation on her BP Today she tells me her BP at home is back to normal She is on a regimen of: Toprol XL 100 mg po daily. and Lisinopril 20 mg po daily Most recent electrolytes, Bun and Creatinine done on: 06/17/2021 were within normal limits. Previous visit I ordered a repeat, pt has yet to do it. She said she will do it prior to our next visit patient advised to adhere to a low sodium diet, encouraged about medication compliance, counseled about weight loss. Assessment & Plan (04/21/2022 1:51 PM EST): Here for a f/u BP currently controlled She is on a regimen of: Toprol XL 100 mg po daily. and Lisinopril 210 mg po daily Given adequate blood pressure control will continue with current medical regimen. Most recent electrolytes, Bun and Creatinine done on: 06/17/2021 were within normal limits. Will repeat patient advised to adhere to a low sodium diet, encouraged about medication compliance, counseled about weight loss. Class 1 obesity due to exces s calories with serious comorbidity and body mass index (BMI) of 30.0 to 30.9 in adult 12/24/2011 Assessment & Plan (02/06/2025 11:07 AM EST): Patient has been counseled and educated about diet and exercise. Personal goal of weight loss discussed Co morbidity: DM Assessment & Plan (04/20/2023 8:56 AM EST): Patient has been counseled and educated about diet and exercise. Personal goal of weight loss discussed Assessment & Plan (04/21/2022 2:03 PM EST): Patient has been counseled and educated about diet and exercise. Personal goal of weight loss discussed Depressive disorder 09/29/2011 Assessment & Plan (02/06/2025 10:38 AM EST): Under the care of [facility] Has a psychotherapist and a psychiatrist.(Dr Sims) Currently on: Ambien 10mg po qhs, and Lorazepam 1mg po prn Patient denies any suicidal thoughts or ideations. Has crisis numbers and knows to use them if needed. Assessment & Plan (04/21/2022 1:55 PM EST): Under the care of [facility] Has a psychotherapist and a psychiatrist.(Dr Sims) Currently on: Ambien 10mg po qhs, and Lorazepam 1mg po prn Patient denies any suicidal thoughts or ideations. Has crisis numbers and knows to use them if needed. Irritable bowel syndrome 09/29/2011 Assessment & Plan (04/21/2022 1:56 PM EST): Patient currently nathaly burnett Pt with Hx of IBS Under the care of Dr. Lepe last seen on 12/2011. Previous diagnostic work up included an EGD that showed a hiatal hernia and gastritis. She uses Bentyl with partial results. Microscopic hematuria 09/28/2009 Encounters Date Type Department Care Team Description 02/06/2025 10:30 AM EST Office Visit [facility] [address] [facility] [place] [address] Kenton Jefferson MD Type 2 diabetes mellitus without complication, without [...] Dietary counseling; Exercise counseling; Encounter for immunization 02/06/2025 Travel 02/05/2025 Telephone [facility] [address] [facility] [place] [address] Kenton Jefferson MD chartprep 01/30/2025 Patient Outreach [facility] [address] [facility] [place] [address] Kenton Jefferson MD Care Coordination (/) 01/30/2025 Patient Outreach [facility] [address] [facility] [address] Kenton Jefferson MD Pre-visit Planning (SDOH Screening positive and Tobacco screening positive) 01/23/2025 Refill [facility] [place] [address] Kenton Jefferson MD Type 2 diabetes mellitus without complication, without long-term current use of insulin (HCC); Seasonal allergies 01/22/2025 Refill [facility] [address] [facility] [place] [address] Kenton Jefferson MD Seasonal allergies 01/19/2025 Refill [facility] [address] [place] [address] Kenton Jefferson MD Type 2 diabetes mellitus without complication, without long-term current use of insulin (HCC) 12/11/2024 Telephone [facility] [address] [place] [address] Kenton Jefferson MD January recall 11/30/2024 Refill [facility] [address] [facility] [place] [address] Kenton Jefferson MD Type 2 diabetes mellitus without complication, without long-term current use of insulin ([facility]) 11/30/2024 Refill [facility] [address] [place] [address] Tari Franco, MarkD Type 2 diabetes mellitus without complication, without long-term current use of insulin ([facility]) from Last 3 Months Immunizations Immunization Administration Dates Next Due Hep B, adult 08/28/2024,06/01/2024,12/20/2023 Influenza injectable quadriv alent IIV4 with preservative 01/25/2018,03/04/2017,02/07/2015 Influenza injectable quadriv alent preservative free 01/28/2023,12/18/2021,12/24/2020,12/24,12/29/2018,01/23/2016 Influenza, IIV3, injectable 02/14/2014, 1 Influenza, Split (incl. teresa fied surface antigen) 01/12/2013,12/24/2011 Influenza, seasonal, injecta ble, preservative free 02/06/2025,12/20/2023 Moderna Covid-19 Vaccine 12+ 08/15/2020,07/19/19 21 Pneumococcal Conjugate PCV 20 08/05/2022 Pneumococcal Polysaccharide PPSV23 03/03/2006 TD (adult), 2 Lf tetanus tox oid, preservative free, adsorbed 07/07/2002 Tdap 12/20/2023,07/19/2013 Zoster, Recombinant 11/10/2022,08/05/2022 Social History Tobacco Use Types Packs/Day Years Used Date Smoking Tobacco: Every Day Cigarettes 0.3 14.9 Started: 2010 Passive Smoke Exposure: Current Smokeless Tobacco: Never Tobacco Cessation:Ready to Q uit: Not Asked; Counseling Given: Not Answered Comments:Smoking 1-3 cigarettes daily; smoking since 2010. Alcohol Use Standard [...] Orientation Straight 01/26/2022 10 :16 AM EDT Last Filed Vital Signs Vital Sign Reading [...] Mass Index 30.68 02/06/2025 10:34 AM EST Plan of Treatment Health Maintenance Due Date Last Done Comments CT Colonography 1965 Colonoscopy 1965 FIT 1965 Sigmoidoscopy 1965 Diabetes: Foot Exam 09/18/1977 Eye Exam 09/18/1977 HPV/Cotest 01/24/2022 01/07/2017 Cervical Cancer Screening 11/10/2023 Pap Smear 11/10/2023 11/09/2022, 12/03/2020 Mammogram 01/16/2024 01/15/2023, 12/27, 01/06/2019 FOBT 02/04/2024 02/03/2023, 02/02/2023 COVID-19 Vaccine ( season) 2024 01/02/2022, 08/15/2020, 07/18/2020 Diabetes: Hemoglobin A1C 05/09/2025 025, 08/28/2024, 02/01/2024, Additional history exists Diabetes: Urine Protein Screening 07/20/2025 07/20/2024, 07/16/2022, 10/11/2020 Lipid Panel 07/20/2025 07/20/2024, 06/28, 06/17/2021, Additional history exists Depression Monitoring 08/06/2025 02/06/2025, 025 SDOH Screening 01/30/2026 01/30/2025 Tobacco Screening 01/30/2026 01/30/2025 Colorectal Cancer Screening 02/03/2026 FIT DNA/Cologuard 02/03/2026 02/03/2023, 02/02/2023 Alcohol/Substance Use Screening 02/06/2026 02/06/2025 Disability Screening 02/06/2026 02/06/2025 DTaP/Tdap/Td Vaccines (3 - Td or Tdap) 12/19/2033 12/20/2023, 07/19/2013, 07/07/2002 RSV Patients and Patients Aged 60 years or older (1 - 1-dose 75+ series) 09/18/2042 Colposcopy Completed 01/24/2021, 01/08/2021 HIV Screening Completed 07/16/2022 Hepatitis C Screening Completed 07/16/2022 Pneumococcal Vaccine: 50+ Years Completed 08/05/2022, 03/03/2006 Zoster Vaccines Completed 11/10/2022, 08/05/2022 Hepatitis B Vaccines Completed 08/28/2024, 06/01/2024, 12/20/2023 Influenza Vaccine Completed 02/06/2025, , 01/28/2023, Additional history exists HIB Vaccines Aged Out No longer eligi [...] patient's age to complete this topic Meningococcal Vaccine Aged Out No nicole moe eligible based on patient's age to complete this topic RSV under 20 months Aged Out No longe r eligible based on patient's age to complete this topic Rotavirus Vaccines Aged Out No longer eligible based on patient's age to complete this topic Goals Goal Patient Goal Type Associated Problems Recent Progress Patient-Stated? Author Remain at or Below Target Blood Pressure General Benign hypertension On track( 024 11:03 AM EDT) No Roosevelt Reis, Jeffrey Hemoglobin A1c < 7 Result Component Type 2 diabetes mellitus without complication, without long-term current use of insulin 7.1( 5 10:35 AM EST) No Roosevelt Reis PharmD Procedures Procedure Name Priority Date/Time Associated Diagnosis Comments XR ELBOW 3+ VIEWS LEFT Routine 11:35 AM EST Mass of left forearm [...] without long-term current use of insulin (HCC) ALBUMIN, RANDOM URINE W/CREATININE Routine 07/20/2024 8:10 AM EDT Type 2 diabetes mellitus without complication, without long-term current use of insulin (CMS/HCC) LIPID PANEL, STANDARD Routine 07/20/2024 8:10 AM EDT HM FIT DNA/COLOGUARD CANCER SCREENING Routine 02/03/2023 BI MAMMOGRAM SCREENING TOMOSYNTHESIS BILATERAL Routine 01/15/2023 2:30 PM EDT PAP SMEAR Routine 11/09/2022 3:41 PM EDT HEPATITIS C AB W/REFL TO HCV RNA, QN, PCR Routine 07/16/2022 8:25 AM EDT Type 2 diabetes mellitus without complication, without long-term current use of insulin (CMS/HCC) HIV 1/2 ANTIGEN/ANTIBODY, FOURTH GENERATION W/RFL Routine 07/16/2022 8:25 AM EDT Type 2 diabetes mellitus without complication, without long-term current use of insulin (CMS/HCC) BIOPSY CERVIX Routine 01/24/2021 12:00 AM EDT ZZZ HISTORICAL HPV MRNA E6/E7 Routine 01/07/2017 11:52 AM EDT from Last 3 Months or Most Recently Relevant to Health Maintenance Results * XR Elbow 3+ Views Left (02/07/2025 11:35 AM EST) Anatomical Region Laterality Modality Upper Extremities, Elbow Left Radiogr aphic Imaging 02/07/2025 11:3 5 AM EST Narrative 02/07/2025 11:46 AM EST [address] [address] XRay Report Signed Patient: Jacqui Almaraz I MR#: [id number] : 1965 Acct:[id number] Age/Sex: 59 / F ADM Date: 02/07/25 Loc: [facility] Attending Dr: Kenton Olmos MD Ordering Physician: Kenton Olmos MD Date of Service: 02/07/25 Procedure(s): XR elbow LT min 3V Accession Number(s): [id number] cc: Kenton Olmos MD Reason for Exam: [...] 02/07/25 1144 DD/ 1135 TD/TT: 02/07/25 1139 Volunteer Patient Representative: Procedure Note Donotuseinterpreter, Image - 02/07/[address] [place] [address] XRay Report Signed Patient: Jacqui Almaraz IMR#: [id number] : 1965Acct:[id number] Age/Sex: 59 / FADM Date: 02/07/25 Loc: [facility] Attending Dr: Kenton Olmos MD Ordering Physician: Kenton Olmos MD Date of Service: 02/07/25 Procedure(s): XR elbow LT min 3V Accession Number(s): [id number] cc: Kenton Olmos MD Reason for Exam: [...] 02/07/25 1144 DD/ 1135 TD/TT: 02/07/25 1139 Volunteer Patient Representative: us Kenton Campbell MD IMG XR PROCEDURES Fin al Result * XR Forearm 2 Views Left (02/07/2025 11:33 AM EST) Anatomical Region Laterality Modality Upper Extremities, Forearm Left Radio graphic Imaging 02/07/2025 11:3 3 AM EST Narrative 02/07/2025 11:46 AM EST [address] [address] XRay Report Signed Patient: Jacqui Almaraz I MR#: [id number] : 1965 Acct:[id number] Age/Sex: 59 / F ADM Date: 02/07/25 Loc: [facility] Attending Dr: Kenton Olmos MD Ordering Physician: Kenton Olmos MD Date of Service: 02/07/25 Procedure(s): XR forearm LT 2V Accession Number(s): [id number] cc: Kenton Olmos MD Reason for Exam: [...] 02/07/25 1144 DD/ 1133 TD/TT: 02/07/25 1139 Volunteer Patient Representative: Procedure Note Donotuseinterpreter, Image - 02/07/[address] [address] XRay Report Signed Patient: Jacqui Almaraz IMR#: [id number] : 1965Acct:[id number] Age/Sex: 59 / FADM Date: 02/07/25 Loc: [facility] Attending Dr: Kenton Omlos MD Ordering Physician: Kenton Olmos MD Date of Service: 02/07/25 Procedure(s): XR forearm LT 2V Accession Number(s): [id number] cc: Kenton Olmos MD Reason for Exam: [...] 02/07/25 1144 DD/ 1133 TD/TT: 02/07/25 1139 Volunteer Patient Representative: us Kenton Campbell MD IMG XR PROCEDURES [...] TEST EN TER/EDIT ORDERABLES Final Result * Albumin, Random Urine W/Creatinine (07/20/2024 8:10 AM EDT) Creatinine, Urine 161.42 mg/dL [facility] Microalbumin Urine 12.0 mg/L [facility] Microalbum Creatinine Ratio Ur 7.4 <30 ug/mg cr [facility] Comment:Albumin/Creatinine R atio Reference Ranges: Normal: < 30 ug/mg creatinine Microalbuminuria: 30 - 300 ug/mg creatinineClinical Albuminuria: > 300 ug/mg creatinine Urine (Urine, Random) 07/20/2024 8:10 AM EDT 07/20/2024 11:24 AM EDT us Kenton Campbell MD LAB URINE ORDERABLES Final Result [facility] [address] [place] [address] [phone] * (ABNORMAL) Lipid Panel, Standard (07/20/2024 8:10 AM EDT) Triglycerides 186(H) <150 mg/dL [facility] Comment:Desirable Triglyceri de: less than 150 mg/dLBorderline High Triglyceride 150-199 mg/dLHigh Triglyceride: 200-499 mg/dLVery High Triglyceride: greater than or equal to 5OO mg/dL Cholesterol 128 <200 mg/dL [facility] Comment:Desirable Cholestero l: less than 200 mg/dLBorderline High Cholesterol: 200-239 mg/dLHigh Cholesterol: greater than 239 mg/dL LDL Cholesterol Calculated 61 <100 mg/dL [facility] Comment:Desirable LDL: less than 100 mg/dLNear Optimal/Above Optimal LDL: 110- 129 mg/dLBorderline High LDL: 130-159 mg/dLHigh LDL: 160-189 mg/dLVery High LDL: greater than or equal to 190 mg/dL HDL Cholesterol 30(L) >40 mg/dL [facility] Comment:Desirable HDL: great er than 40 mg/dL Note: This HDL assay may give artificially low results in patients with liver disease. 07/20/2024 8:10 AM EDT 07/20/2024 11:10 AM EDT Kenton Campbell MD LAB BLOOD ORDERABLES Final Result [facility] [address] [place] [phone] * FIT DNA/Cologuard Cancer Screening (02/03/2023) Cologuard Cancer Screen Negative Stool Kenton Campbell MD [facility] nal Result * BI Mammogram Screening Tomosynthesis Bilateral (01/15/2023 2:30 PM EDT) Anatomical Region Laterality Modality Breast Bilateral Mammography 01/15/2023 2:30 PM EDT Narrative 01/30/2023 8:17 AM EDT [facility] [address] [place] [address] Mammography Report Signed Patient: Jacqui Allen MR#: [id number] : 1965 Acct:[id number] Age/Sex: 57 / F ADM Date: 01/15/23 Loc: CAN Attending Dr: Lalo Gonzalez MD Ordering Physician: Lalo Gonzalez MD Results: 1Negativ e Date of Service: 01/15/23 Follow Up: 1 Year From [facility] Mammogram Procedure(s): MM tomosynthesis screening BI Accession Number(s): [id number] cc: Kenton Olmos MD; Lalo Gonzalez MD EXAMINATION: MM SCREENING DIGITAL BREAST TOMOSYNTHESIS, BILATERAL CLINICAL INFORMATION: Screening. Asymptomatic. COMPARISON: Mammography: This study is compared with prior exams dating back to 2017. TECHNIQUE: Digital breast tomosynthesis is performed in both the craniocaudal and mediolateral oblique views along with computer-aided detection (CAD). Synthesized 2D images are generated from the tomosynthesis. FINDINGS: There are scattered areas of fibroglandular density (ACR BI-RADS breast composition Category b). There are no significant masses, abnormal calcifications, or other abnormalities. MM/MM tomosynthesis screening BI IMPRESSION: No mammographic evidence of malignancy. ASSESSMENT: BI-RADS BI-RADS 1 - Negative RECOMMENDATION: Routine annual mammography screening. 1 year F/U This examination should not preclude the clinical evaluation of a suspicious palpable abnormality. This patient's information was entered into a reminder system with a target due date for their next mammogram. Dictated By: Shital Sharma MD Signed By: <Electronically signed by Shital Sharma MD in OV> 01/30/23 0813 DD/ 1430 TD/TT: Volunteer Patient Representative: Procedure Note Donotuseinterpreter, Image - [facility] [address] [place], [place] [address] Mammography Report Signed Patient: AlejandroEdnaMR#: [id number] : 1965Acct:[id number] Age/Sex: 57 / FADM Date: 01/15/23 Loc: CAN Attending Dr: Lalo Gonzalez MD Ordering Physician: Lalo Gonzalez MDResults: 1Negativ e Date of Service: 01/15/23Follow Up: 1 Year From Orig ina Mammogram Procedure(s): MM tomosynthesis screening BI Accession Number(s): [id number] cc: Kenton Olmos MD; Lalo Gonzalez MD EXAMINATION: MM SCREENING DIGITAL BREAST TOMOSYNTHESIS, BILATERAL CLINICAL INFORMATION: Screening. Asymptomatic. COMPARISON: Mammography: This study is compared with prior exams dating back to 2017. TECHNIQUE: Digital breast tomosynthesis is performed in both the craniocaudal and mediolateral oblique views along with computer-aided detection (CAD). Synthesized 2D images are generated from the tomosynthesis. FINDINGS: There are scattered areas of fibroglandular density (ACR BI-RADS breast composition Category b). There are no significant masses, abnormal calcifications, or other abnormalities. MM/MM tomosynthesis screening BI IMPRESSION: No mammographic evidence of malignancy. ASSESSMENT: BI-RADS BI-RADS 1 - Negative RECOMMENDATION: Routine annual mammography screening. 1 year F/U This examination should not preclude the clinical evaluation of a suspicious palpable abnormality. This patient's information was entered into a reminder system with a target due date for their next mammogram. Dictated By: Shital Sharma MD Signed By: <Electronically signed by Shital Sharma MD in OV> 01/30/23 0813 DD/ 1430 TD/TT: Volunteer Patient Representative: [facility] External Provider IMG BI PROCEDURES Edited Result - Final * Pap Smear (11/09/2022 3:41 PM EDT) 11/09/2022 3:41 PM EDT 11/10/2022 10:20 AM EDT [facility] - 11/24/2022 3:34 PM EDT ----- ------- Name: Jacqui Allen Age/Sex: 57/F : 1965 Unit#: [id number] Attend Dr: Lalo Gonzalez MD Re11/09/22 Status: DEP REF Location: [facility] Disch: ----- ------- SPEC : [id number] RECD: 11/10/22-1019 STATUS: KATIA OVIEDO NUM: [id number] MAEGAN: 11/09/22-[address] [facility] [address]: Lalo Gonzalez MD ENTERED: 11/10/22 SP TYPE: Pap Smr OTHR DR: Kenton Olmos MD ORDERED: Pap Smear Interpretation Satisfactory for evaluation. No endocervical cells seen. Negative for intraepithelial lesion or malignancy. HPV mRNA E6/E7: NOT DETECTED This assay detects E6/E7 viral messenger RNA (mRNA) from 14 high-risk HPV types (16, 18, 31, 33, 35, 39, 45, 51, 52, 56, 58, 59, 66, 68) HPV testing performed by [facility], [place], [place]. See reference laboratory pion of the EMR for entire report. Clinical Information LMP:Postmenopausal Previous PAP test:Unknown date, ASCUS Other history:Personal history of other diseases of the female genital tract Material Received ThinPrep-Cervical Copies To: Kenton Olmos MD [address] [place] [phone] Lalo Gonzalez MD [address] [place] [address] [address] ----- ------- Signed (signature on file) Savanah Chau MD 11/24/22 1534 ----- ------- END OF REPORT [facility] External Provider LAB CYT OLOGY ORDERABLES Final Result [facility] [address] [place] [phone] * Hepatitis C Antibody with Reflex to HCV, RNA, Quantitative, Real-Time PCR (07/16/2022 8:25 AM EDT) Pathologist [facility] Hepatitis C Antibody NON-REACT ESTRADA NON-REACT ESTRADA [facility] [place] [facility] Index 0.26 <1.00 [facility] Comment: HCV antibody was non-reactive. There is no laboratory evidence of HCV infection. In most cases, no further action is required. However, if recent HCV exposure is suspected, a test for HCV RNA (test code 56154) is suggested. For additional information please refer to http://education.HiGear.Nexidia/faq/FOC19b0 (This link is being provided for informational/ educational purposes only.) Blood Venous blood specimen / Unknown 07/16/2022 8:25 AM EDT 07/16/2022 8:25 AM EDT Narrative [facility] - 07/16/2022 7:21 PM EDT FASTING:YES FASTING: YES Kenton Campbell MD LAB BLOOD ORDERABLES Final Result [facility] [address] [place] [address] [facility] [place] [facility] [address] [place] [address] * HIV-1/2 Antigen and Antibodies, Fourth Generation, with Reflexes (07/16/2022 8:25 AM EDT) HIV Antigen/Antibody, 4th Generation NON-REAC TIVE NON-REAC TIVE [facility] [place] [facility] Comment: HIV-1 antigen and HIV-1/HIV-2 antibodies were not detected. There is no laboratory evidence of HIV infection. PLEASE NOTE: This information has been disclosed to you from records whose confidentiality may be protected by state law. If your state requires such protection, then the state law prohibits you from making any further disclosure of the information without the specific written consent of the person to whom it pertains, or as otherwise permitted by law. A general authorization for the release of medical or other information is NOT sufficient for this purpose. For additional information please refer to http://education.Wear My Tags/faq/JIO983 (This link is being provided for informational/ educational purposes only.) The performance of this assay has not been clinically validated in patients less than 2 years old. Blood Venous blood specimen / Unknown 07/16/2022 8:25 AM EDT 07/16/2022 8:25 AM EDT Narrative [facility] - 07/16/2022 7:21 PM EDT FASTING:YES FASTING: YES us Kenton Campbell MD LAB BLOOD ORDERABLES Final Result Performing Organization Address City/[facility]/ZIP Co de Phone Number [facility] [address], [place] [address] [facility] [place] [facility] [address] [place] [address] * Biopsy cervix (01/24/2021 12:00 AM EDT) Historical Provider MD IN CLINIC/BEDSIDE ORDERAB LES Final Result * HPV mRNA E6/E7 (01/07/2017 11:52 AM EDT) HPV mRNA E6/E7 Not Detected NOT DETECTED [facility] Comment: This test was performed using the APTIMA(R) HPV Assay ([employer] This assay detects E6/E7 viral messenger RNA (mRNA) from 14 high-risk HPV types (16,18,31,33,35,39,45,51, 52,56,58,59,66,68). For additional information please refer to: http://education.Wear My Tags/faq/EUA851u5 (This link is being provided for informational/ educational purposes only.) Test Performed by [facility], [facility], [address] [place] [phone] Harjeet Chatman M.D., Ph.D., Director of Laboratories , [place] [id number] Please note: Effective 12/09/2015, HPV testing will be performed using [employer]'s APTIMA test which targets mRNA. Detecting mRNA instead of DNA, as in older methods, offers significant improvements in specificity. 01/07/2017 11:5 2 AM EDT us Historical Provider HISTORICAL/NON ORDERABLE LABS Final Result [facility] [address] from Last 3 Months or Most Recently Relevant to Health Maintenance [place] [id number] [facility] Care Teams Book Repairer Relationship Specialty Start Date End Date Kenton Jefferson MD [address] [place] [address] PCP - General Internal Medicine 12/25/13 Roosevelt Reis, PharmD [address] [place] [phone] Pharmacist Internal Medicine 05/26/22
--- OUTSIDE RECORDS SUMMARY | 2025-02-07 12:16 | XMS_ITS | Encounter Summary ---
Author Organization [employer] Address [address] [facility] 7t [place] [address] Care Team Providers Care Manager Biologics Name Role Phone Kenton Jefferson MD Primary Care Provide r Roosevelt Reis PharmD Unavailable [phone] Reason for Visit * Reason Comments Med Refill Encounter Details Date Type Department Care Team ([facility] st Contact Info) Description 04/19/2023 Refill [facility] [address] [place], [place] [phone] Kenton Jefferson MD [address] [place], [place] [phone] Type 2 diabetes mellitus without complication, unspecified whether longterm insulin use ([facility]) Social History Tobacco Use Types Packs/Day Years Used Date Smoking Tobacco: Every Day Cigarettes 0.3 14.9 Started: 2010 Passive Smoke Exposure: Current Smokeless Tobacco: Never Comments:Smoking 1-3 cigaret hossein daily; smoking since 2010. Alcohol Use Standard Drinks/Week Comments Never 0 (1 standard drink = 0.6 oz pur e alcohol) Depression Answer Date Recorded Patient Health Questionnaire-9 Score 5 04/21/2022 Housing Stability Answer Date Recorded What is your housing situation today? I have housing today, but I am worried about losing housing in the future 01/21/[address] you li ve. Do you have problems with any of the following? None of the above 01/21/2023 Food Insecurity Answer Date Recorded Within the past 12 months, y ou worried that your food would run out before you got money to buy more: Never True 01/21/2023 Within the past 12 months,th e food you bought just didn't last and you didn't have enough money to get more: Never True Transportation Answer Date Recorded In the past 12 months, has l ack of transportation kept you from medical appts, meetings, work or from getting things needed for daily living? No 01/21/2023 Utilities Answer Date Recorded In the past 12 months, has t he electric, gas, oil or water company threatened to shut off services in your home? No 01/21/2023 Depression Answer Date Recorded Patient Health Questionnaire-2 [...] Diagnosis Type 2 diabetes mellitus without complication, unspecified whether longterm insulin use documented in this encounter Additional Health Concerns Assessment Noted Time PHQ-9 Depression Total Score: 5 04/21/19 23 1:44 PM EST documented as of this encounter Care Teams Manager Biologics Relationship Specialty Start Date End Date Kenton Jefferson MD [address] [place] [address] PCP - General Internal Medicine 12/25/13 Roosevelt Reis PharmD [address] [place] [address] Pharmacist Internal Medicine 05/26/22 documented as of this encounter
--- OUTSIDE RECORDS SUMMARY | 2025-02-07 12:16 | XMS_ITS | Encounter Summary ---
Author Organization [facility] [facility] Address [address] [place] [address] 7t [place] [address] Care Team Providers Care Sales And Service Officer Name Role Phone Kenton Jefferson MD Primary Care Provide r Roosevelt Reis PharmD Unavailable Encounter Details Date Type Department Care Team (Late st Contact Info) Description 03/18/2022 Orders Only [facility] [address] [place] [address] Katerine Gao LPN Social History Tobacco Use Types Packs/Day Years [...] Diagnoses Not on filedocumented in this encounter Care Teams Sales And Service Officer Relationship Specialty Start Date End Date Kenton Jefferson MD [address] [place] [address] PCP - General Internal Medicine 12/25/13 Roosevelt Reis, PharmD [address] [place] [address] Pharmacist Internal Medicine 05/26/22 documented as of this encounter
--- OUTSIDE RECORDS SUMMARY | 2025-02-07 12:16 | XMS_ITS | Encounter Summary ---
Author Organization [employer] Address [address] [facility] 7t [place] [address] Care Team Providers Care Senior Premium Auditor Name Role Phone Kenton Jefferson MD Primary Care Provide r Roosevelt Reis PharmD Unavailable [phone] Reason for Visit * Reason Onset Date Comments chartprep 02/05/2025 Encounter Details Date Type Department Care Team ([facility] st Contact Info) Description 02/05/2025 Telephone [facility] [address] [place] [address] Kenton Jefferson MD [address] [place], [place] [phone] chartprep Social History Tobacco Use Types Packs/Day Years [...] AM EDT documented as of this encounter Miscellaneous Notes * Telephone Encounter - Whitney Campbell [place] - 02/05/2025 2:56 PM EST ..Chart Prep Labs: done Images: not applicable Vaccines due: Covid Due and Flu Due Referrals: Not Applicable Screenings: PAP and Foot Exam Overdue care gaps: Glucose, Sbirt, PHQ9, GAD7, and Disability documented in this encounter Plan of Treatment Not on [...] 7.1( 5 10:35 AM EST) No Roosevelt Reis, PharmD documented as of this encounter Visit Diagnoses Not on filedocumented in this encounter Additional Health Concerns Assessment Noted Time PHQ-9 Depression Total Score: 0 02/01/20 24 10:26 AM EST documented as of this encounter Care Teams Senior Premium Auditor Relationship Specialty Start Date End Date Kenton Jefferson MD [address] [place] [address] PCP - General Internal Medicine 12/25/13 Roosevelt Reis, PharmD [address] [place] [phone] Pharmacist Internal Medicine 05/26/22 documented as of this encounter
--- OUTSIDE RECORDS SUMMARY | 2025-02-07 12:16 | XMS_ITS | Encounter Summary ---
Author Organization [employer] [facility] Address [address] [place] [address] 7t [place] [address] Care Team Providers Care Agriculture Inspector Name Role Phone Kenton Jefferson MD Primary Care Provide r Roosevelt Reis PharmD Unavailable [phone] Encounter Details Date Type Department Care Team (Late st Contact Info) Description 04/08/2022 Orders Only [facility] [address] [place] [address] Katerine Gao LPN Social History Tobacco Use [...] on filedocumented in this encounter Care Teams Agriculture Inspector Relationship Specialty Start Date End Date Kenton Jefferson MD [address] [place] [address] PCP - General Internal Medicine 12/25/13 Roosevelt Reis, PharmD [address] [place] [address] Pharmacist Internal Medicine 05/26/22 documented as of this encounter
--- OUTSIDE RECORDS SUMMARY | 2025-02-07 12:16 | XMS_ITS | Encounter Summary ---
Author Organization [employer] Address [address] [place] [address] 7t [place] [address] Care Team Providers Care Surgery Specialist Name Role Phone Kenton Jefferson MD Primary Care Provide r Roosevelt Reis PharmD Unavailable [phone] Encounter Details Date Type Department Care Team ([facility] st Contact Info) Description 03/31/2022 Orders Only [facility] [address] [place] [address] LPN Social History Tobacco Use Types Packs/Day [...] on filedocumented in this encounter Care Teams Surgery Specialist Relationship Specialty Start Date End Date Kenton Jefferson MD [address] [place] [address] PCP - General Internal Medicine 12/25/13 Roosevelt Reis, PharmD [address] [place] [address] Pharmacist Internal Medicine 05/26/22 documented as of this encounter
--- OUTSIDE RECORDS SUMMARY | 2025-02-07 12:16 | XMS_ITS | Encounter Summary ---
Author Organization [employer] Address [address] [place] [address] 7t [place] [address] Care Team Providers Care Brigadier Name Role Phone Kenton Jefferson MD Primary Care Provide r Roosevelt Reis PharmD Unavailable [phone] Encounter Details Date Type Department Care Team ([facility] st Contact Info) Description 10/20/2022 Abstract [facility] [address] [place] [address] Kenton Jefferson MD [address] [place] [address] Social History Tobacco Use Types Packs/Day Years [...] on file documented as of this encounter Procedures Procedure Name Priority Date/Time Associated Diagnosis Comments BIOPSY CERVIX Routine 01/24/2021 12:00 AM EDT COLPOSCOPY Routine 01/08/2021 12:00 AM EDT HM PAP/HPV Routine 12/03/2020 12:00 AM EDT documented in this encounter Results * Biopsy cervix (01/24/2021 12:00 AM EDT) us Historical Provider MD IN CLINIC/BEDSIDE ORDERAB LES Final Result * Colposcopy (01/08/2021 12:00 AM EDT) Historical Provider MD IN CLINIC/BEDSIDE ORDERAB LES Final Result Performing Organization Address [facility] Co de Phone Number [facility] [address] [place] [address] [phone] * Hm Pap Smear (12/03/2020 12:00 AM EDT) Historical Provider MD HEALTH MAINTENANCE Final Result Performing Organization Address [facility] de Phone Number [facility] [address] [place] [address] [phone] documented in this encounter Visit Diagnoses Not on filedocumented in this encounter Additional Health Concerns Assessment Noted Time PHQ-9 Depression Total Score: 5 04/21/19 23 1:44 PM EST documented as of this encounter Care Teams Brigadier Relationship Specialty Start Date End Date Kenton Jefferson MD [address] [place] [address] PCP - General Internal Medicine 12/25/13 Roosevelt Reis PharmD [address] [place] [address] Pharmacist Internal Medicine 05/26/22 documented as of this encounter
--- OUTSIDE RECORDS SUMMARY | 2025-02-07 12:16 | XMS_ITS | Encounter Summary ---
Author Organization [employer] [facility] Address [address] [place] [address] 7t [place] [address] Care Team Providers Care Pound Attendant Name Role Phone Kenton Jefferson MD Primary Care Provide r Roosevelt Reis PharmD Unavailable [phone] Encounter Details Date Type Department Care Team (Latest Contact Info) Description 12/10/2020 Abstract [facility] CONVERSIONS Dental, Provider, DDS Social History Tobacco Use Types Packs/Day Years [...] on filedocumented in this encounter Care Teams Pound Attendant Relationship Specialty Start Date End Date Kenton Jefferson MD [address] [place] [address] PCP - General Internal Medicine 12/25/13 Roosevelt Reis, PharmD [address] [place] [address] Pharmacist Internal Medicine 05/26/22 documented as of this encounter
--- OUTSIDE RECORDS SUMMARY | 2025-02-07 12:16 | XMS_ITS | Encounter Summary ---
Author Organization [employer] Address [address] [facility] 7t [place] [address] Care Team Providers Care It Architecture Analyst Name Role Phone Kenton Jefferson MD Primary Care Provide r Roosevelt Reis PharmD Unavailable [phone] Encounter Details Date Type Department Care Team ([facility] st Contact Info) Description 01/22/2025 Refill [facility] [address] [place] [address] Kenton Jefferson MD [address] [place] [address] Seasonal allergies Social History Tobacco Use Types Packs/Day Years [...] housing situation today? I have love leon 05/18/[address] you li [...] as of this encounter Visit Diagnoses Diagnosis Seasonal allergies Allergic rhinitis, cause unspecified documented in this encounter Additional Health Concerns Assessment Noted Time PHQ-9 Depression Total Score: 0 02/01/20 24 10:26 AM EST documented as of this encounter Care Teams It Architecture Analyst Relationship Specialty Start Date End Date Kenton Jefferson MD [address] [place] [address] PCP - General Internal Medicine 12/25/13 Roosevelt Reis, Jeffrey [address] [place] [address] Pharmacist Internal Medicine 05/26/22 documented as of this encounter
--- OUTSIDE RECORDS SUMMARY | 2025-02-07 12:16 | XMS_ITS | Encounter Summary ---
Author Organization [employer] Address [address] [facility] 7t [place] [address] Care Team Providers Care Furniture Painter Name Role Phone Kenton Jefferson MD Primary Care Provide r Roosevelt Reis PharmD Unavailable [phone] Reason for Visit * Reason Comments Med Refill Encounter Details Date Type Department Care Team (Late st Contact Info) Description 01/19/2025 Refill [facility] [address] [place] [address] Kenton Jefferson MD [address] [place], [place] [phone] Type 2 diabetes mellitus without complication, without long-term current use of insulin (HCC) Social History Tobacco Use Types Packs/Day Years [...] documented as of this encounter Care Teams Furniture Painter Relationship Specialty Start Date End Date Kenton Jefferson MD [address] [place] [address] PCP - General Internal Medicine 12/25/13 Roosevelt Reis PharmD [address] [place] [address] Pharmacist Internal Medicine 05/26/22 documented as of this encounter
--- OUTSIDE RECORDS SUMMARY | 2025-02-07 12:16 | XMS_ITS | Encounter Summary ---
Author Organization [employer] Address [address] [facility] 7t [place] [address] Care Team Providers Care Promotions Assistant Name Role Phone Kenton Jefferson MD Primary Care Provide r Roosevelt Reis PharmD Unavailable [phone] Reason for Referral * Consultation (Routine) - Closed Specialty Diagnoses / Procedures Referred By Contac t Referred To Contact Pharmacy Diagnoses Benign hypertension Evy Freedman MD [address] [place] [address] Phone: tel: fax: Referral ID Status Reason Start Date Expiration Date V isits Requested Visits Authorized [id number] Closed Continuity of Care 08/14/2024 08/14/2025 6 6 Encounter Details Date Type Department Care Team (Late st Contact Info) Description 08/09/2024 Orders Only [facility] [address] [place], [place] [phone] Evy Freedman MD [address] [place], [place] [phone] Benign hypertension (Primary Dx) Social History Tobacco Use Types Packs/Day Years [...] Average Number of Drinks Not on file Frequency of Binge Drinking Not on file 07/2023 Score 0 02/01/2024 Depression Answer Date Recorded Patient Health Questionnaire-9 Score 0 02/01/2024 Patient Health Questionnaire-9 Score 0 02/01/2024 Last PHQ-9: Questionnaire Data Not on file 1 04/02/2023 Housing Stability Answer Date Recorded What is your housing situation today? I have love edward 05/18/[address] you li [...] as of this encounter Plan of Treatment Scheduled Referrals Name Type Priority Associated Diagnoses Orde r Schedule Referral to Pharmacy MTM Outpatient Referral Routine Benign hypertension Ordered: 08/14/2024 documented as of this encounter Goals Goal Patient Goal Type Associated Problems Recent Progress Patient-Stated? Author Remain at or Below Target Blood Pressure General Benign hypertension On track( 024 11:03 AM EDT) No Roosevelt Reis PharmD Hemoglobin A1c < 7 Result Component Type 2 diabetes mellitus without complication, without long-term current use of insulin 7.1( 5 10:35 AM EST) No Roosevelt Reis PharmD documented as of this encounter Visit Diagnoses Diagnosis Benign hypertension- Primary Essential hypertension, benign documented in this encounter Additional Health Concerns Assessment Noted Time PHQ-9 Depression Total Score: 0 02/01/20 24 10:26 AM EST documented as of this encounter Care Teams Promotions Assistant Relationship Specialty Start Date End Date Kenton Jefferson MD [address] [place] [address] PCP - General Internal Medicine 12/25/13 Roosevelt Reis PharmD [address] [place] [address] Pharmacist Internal Medicine 05/26/22 documented as of this encounter
--- OUTSIDE RECORDS SUMMARY | 2025-02-07 12:16 | XMS_ITS | Patient Health Record ---
Author Organization [facility] Address [address] [place] [phone] Care Team Providers Care Upholstery Bundler Name Role Phone Julio Campbell MD, Kenton Primary Care Provide Wilber Carrillo [phone] Allergies Allergen (clinical drug ingredient) Drug/Non Drug Allergy documented on EMR Reaction Allergy Type Onset Date Status all seafoods (uncoded) Unknown Allergy Active Reason For Referral No Information Medications Medication SIG (Take, Route, Frequency, Duration) Notes Start Date End Date Status Bentyl 20mg 03/29/2024 03/29/2024 Active Acetaminophen-Codeine 300mg/30mg 03/29/2024 03/29/2024 Active PriLOSEC 20mg 03/29/2024 03/29/2024 Acti ve Loperamide HCl 2mg 03/29/2024 03/29/2024 Active Ambien 10mg 03/29/2024 03/29/2024 Active Toprol XL 50mg 03/29/2024 03/29/2024 Act denisse Amoxicillin 500mg PRN 03/29/2024 03/29/2024 Active Problems Problem Type SNOMED Code ICD Code Onset Dates Problem Status W/U Status Risk Notes Problem Irritable bowel syndrome (31538209) Irritable bowel syndrome (564.1) Active confirmed Problem Gastroesophageal reflux disease (747959511) GERD (gastroesopha geal reflux disease) (530.81) Active confirmed Plan Of Treatment No Information Insurance Providers Payer Name Payer Address Payer Phone Subscriber Number Group Number Insured Name Patient Relationship to Insured Coverage Start Date Coverage End Date [facility] Securly Plan [address] [address] [place], [place] [id number] [id number] CASTILLO Self - patient is the insured MEDICAID OF [facility] [address] [place] [address] [id number] IQRA CASTILLO Self - patient is the insured Medical (General) History Medical History History ICD Code upper endosocopy 11-15-2008-biopsies neg for Hpylori and celiac disease esophageal reflux IBS hypertension Denies PR,DM,CVA,Lung disease,renal dise ase Surgical History Surgery Date(Month/Year) cholecystectomy tubal ligation surgery for a vetriculoseptal defect rep air
== END 2025-02-07 10:21 | disposition home or self-care (01) ==
LOC: HO.HHCX 10:20
PROVIDERS: PCP Internal Medicine; Visit Provider Internal Medicine
DX: R22.32 Localized swelling, mass and lump, left upper limb (principal)
CPT/HCPCS: 73080; 73090

== ENCOUNTER → 2025-02-07 10:49 | Outpatient (BNV) | payer MEDICAID, SELFPAY | PROVIDERS: PCP Internal Medicine; Visit Provider Radiology Diagnostic Radiology | DX: M19.022 Primary osteoarthritis, left elbow (principal); R22.32 Localized swelling, mass and lump, left upper limb | CPT/HCPCS: 73080; 73090 ==